=== PATIENT | female | born 1960 | race African-American/Black ===

== ENCOUNTER 2022-02-07 15:11 | Inpatient (IN) | payer MEDICARE, BC ==
[~2022-02-07] VITALS: Ht 167.6 cm; Wt 84.9 kg
[2022-02-07] MEDS ORDERED: SODIUM CHLORIDE 0.9% 250 ML IV ONE (16:15)
[2022-02-07 16:40] LABS: BASOPHILS % 0.3 % (0.0-2.0); LYMPHOCYTES % 8.8 % (20.0-50.0); MEAN CORPUSCULAR HEMOGLOBIN 31.9 pg (28.0-32.0); MEAN CORPUSCULAR VOLUME 102.1 fL (81.0-99.0); MEAN PLATELET VOLUME 8.6 fl (7.4-10.4); MONOCYTES % 4.6 % (2.0-8.0); NEUTROPHILS % 86.3 % (40.0-76.0); PLATELET 455 x1000/uL (130-400); RED BLOOD CELL COUNT 2.06 mill/uL (4.2-5.4); RED CELL DISTRIBUTION WIDTH 21.6 % (11.6-14.6)
[2022-02-07 16:49] LABS: HEMOGLOBIN. 6.6 g/dL (12.0-16.0)
[2022-02-07 16:50] LABS: CHLORIDE 90 mEq/L (98-107)
[2022-02-07 19:22] LABS: INR > 10.0; PROTHROMBIN TIME > 100.0 sec (9.6-11.0)
[2022-02-07] MEDS ORDERED: PHYTONADIONE 10MG/ML AMP SUBCUT NR (19:45)
[2022-02-07] MEDS ORDERED: PIPERACILLIN/TAZ 3.375G PREMIX 50 ML IV NR (21:00)
[2022-02-07] MEDS ORDERED: VANCOMYCIN 1GM PMX (XELLIA) 200 ML IV NR (21:00)
[2022-02-08] VITALS (9 sets, daily range): BP systolic 95–115; BP diastolic 38–72
[2022-02-08 00:20] LABS: BG BASE EXCESS -9.9 mmol/L (-2.0-2.0); BG CARBOXYHEMOGLOBIN 0.6 % (0.5-1.5); BG FRACTION INSPIRED OXYGEN 40; BG METHEMOGLOBIN 0.2 % (0.0-1.5); BG OXYHEMOGLOBIN 95.2 % (94.0-97.0); BG PH 7.332 (7.350-7.450); BG PO2 96.4 mmHg (75.0-100.0); BG SAMPLE SITE LEFT BRACHIAL; BG TOTAL HEMOGLOBIN 7.9 g/dL (12.0-18.0); BG TOTAL RESPIRATORY RATE 28 b/min; BG VENT MODE MASK - BIPAP
[2022-02-08] MEDS ORDERED: ACETAMINOPHEN 325MG TABLET PO PRN ×2 (06:45)
[2022-02-08] MEDS ORDERED: LORAZEPAM 0.5MG TABLET PO PRN (06:45)
[2022-02-08] MEDS ORDERED: DOCUSATE SODIUM 100MG CAPSULE PO PRN (06:45)
[2022-02-08] MEDS ORDERED: CLONIDINE 0.1MG TABLET PO PRN (06:45)
[2022-02-08] MEDS ORDERED: IPRATROPIUM/ALBUTEROL 0.5-3(2.5)MG/3ML NEB HHN PRN (06:45)
[2022-02-08] MEDS ORDERED: HYDROCODONE/ACETAMINOPHEN 5/325MG TABLET PO PRN (06:45)
[2022-02-08] MEDS ORDERED: NALOXONE HCL 0.4MG/ML VIAL IV PRN (07:00)
[2022-02-08] MEDS ORDERED: FUROSEMIDE 40MG/4ML VIAL IVP SCH (07:45)
[2022-02-08 10:32] LABS: BASOPHILS % 0.1 % (0.0-2.0); HEMATOCRIT. 23.1 % (36.0-48.0); HEMOGLOBIN. 7.4 g/dL (12.0-16.0); LYMPHOCYTES % 11.3 % (20.0-50.0); MEAN CORPUSCULAR HEMOGLOBIN 30.7 pg (28.0-32.0); MEAN CORPUSCULAR VOLUME 95.4 fL (81.0-99.0); MEAN PLATELET VOLUME 8.4 fl (7.4-10.4); MONOCYTES % 7.7 % (2.0-8.0); NEUTROPHILS % 80.9 % (40.0-76.0); PLATELET 308 x1000/uL (130-400); RED BLOOD CELL COUNT 2.42 mill/uL (4.2-5.4); RED CELL DISTRIBUTION WIDTH 19.3 % (11.6-14.6)
[2022-02-08 10:47] LABS: CHLORIDE 94 mEq/L (98-107)
[2022-02-08 10:48] LABS: PROTHROMBIN TIME 97.1 sec (9.6-11.0)
[2022-02-08 10:53] LABS: BG BASE EXCESS -11.2 mmol/L (-2.0-2.0); BG CARBOXYHEMOGLOBIN 0.3 % (0.5-1.5); BG DEOXYHEMOGLOBIN 2.8 % (0.0-5.0); BG FRACTION INSPIRED OXYGEN 60; BG HCO3 ACT 13.5 mmol/L (22.0-26.0); BG METHEMOGLOBIN 0.5 % (0.0-1.5); BG OXYGEN SATURATION 97.2 % (92.0-98.5); BG OXYHEMOGLOBIN 96.4 % (94.0-97.0); BG PCO2 26.3 mmHg (35.0-45.0); BG PH 7.329 (7.350-7.450); BG PO2 110.1 mmHg (75.0-100.0); BG SAMPLE SITE RIGHT RADIAL; BG TOTAL HEMOGLOBIN 8.1 g/dL (12.0-18.0); BG VENT MODE MASK - SIMPLE
[2022-02-08 11:03] LABS: AMYLASE 112 IU/L (25-115); TOTAL IRON BINDING CAPACITY 276 ug/dL (250-450)
[2022-02-08 11:22] LABS: FOLIC ACID (FOLATE) SERUM 16.2 ng/mL (>5.38)
[2022-02-08 11:37] LABS: PHOSPHORUS 12.3 mg/dL (2.5-4.9)
[2022-02-08 11:38] LABS: HAPTOGLOBIN < 8 mg/dL (30-200)
[2022-02-08] MEDS ORDERED: SODIUM POLYSTYRENE SULFONATE 15 G/60 ML BOT PO NR (12:51)
[2022-02-08] MEDS ORDERED: PHYTONADIONE 10MG/ML AMP SUBCUT SCH (13:00)
[2022-02-08] MEDS: PIPERACILLIN/TAZOBACTAM 3.375 G in DEXTROSE 5% WATER 50 ML IV SCH ×2 (14:33→22:14)
[2022-02-08] MEDS: SEVELAMER CARBONATE 800 MG TABLET PO SCH ×2 (14:39→18:00)
[2022-02-08] MEDS: CITRIC ACID/SODIUM CITRATE SOLN 30ML UDC PO SCH ×3 (14:39→17:00)
[2022-02-08] MEDS: FOLIC ACID/VITAMIN B COMP W-C TABLET PO SCH (14:39)
[2022-02-09] VITALS (17 sets, daily range): BP systolic 101–139; BP diastolic 35–90
[2022-02-09] MEDS: SEVELAMER CARBONATE 800 MG TABLET PO SCH ×3 (08:00→17:31)
[2022-02-09] MEDS: PIPERACILLIN/TAZOBACTAM 3.375 G in DEXTROSE 5% WATER 50 ML IV SCH ×2 (08:08→21:16)
[2022-02-09] MEDS: FOLIC ACID/VITAMIN B COMP W-C TABLET PO SCH (08:08)
[2022-02-09] MEDS: CITRIC ACID/SODIUM CITRATE SOLN 30ML UDC PO SCH ×3 (08:08→16:06)
[2022-02-09] MEDS: METOPROLOL TARTRATE 25MG TABLET PO SCH ×2 (08:55→21:16)
[2022-02-09 12:20] LABS: BASOPHILS % 0.1 % (0.0-2.0); EOSINOPHILS % 0.1 % (0.0-5.0); LYMPHOCYTES % 8.5 % (20.0-50.0); MEAN CORPUSCULAR HEMOGLOBIN 30.6 pg (28.0-32.0); MEAN CORPUSCULAR VOLUME 95.7 fL (81.0-99.0); MEAN PLATELET VOLUME 8.4 fl (7.4-10.4); MONOCYTES % 6.8 % (2.0-8.0); NEUTROPHILS % 84.5 % (40.0-76.0); PLATELET 261 x1000/uL (130-400); RED BLOOD CELL COUNT 2.09 mill/uL (4.2-5.4)
[2022-02-09 12:34] LABS: HEMOGLOBIN. 6.4 g/dL (12.0-16.0)
[2022-02-09 17:50] LABS: INR 3.6; PROTHROMBIN TIME 34.8 sec (9.6-11.0)
[2022-02-09 20:52] LABS: HEMATOCRIT 26.3 % (36.0-48.0); HEMOGLOBIN 8.6 g/dL (12.0-16.0)
[2022-02-09 20:58] LABS: INR 3.2; PROTHROMBIN TIME 31.8 sec (9.6-11.0)
[2022-02-09] MEDS ORDERED: FUROSEMIDE 40MG/4ML VIAL IVP SCH (21:00)
[2022-02-10] VITALS (13 sets, daily range): BP systolic 91–157; BP diastolic 44–112
[2022-02-10 06:33] LABS: EOSINOPHILS % 0.8 % (0.0-5.0); HEMATOCRIT. 26.9 % (36.0-48.0); LYMPHOCYTES % 8.9 % (20.0-50.0); MEAN CORPUSCULAR VOLUME 95.7 fL (81.0-99.0); MEAN PLATELET VOLUME 8.7 fl (7.4-10.4); MONOCYTES % 6.8 % (2.0-8.0); NEUTROPHILS % 83.5 % (40.0-76.0); PLATELET 235 x1000/uL (130-400); RED BLOOD CELL COUNT 2.81 mill/uL (4.2-5.4); RED CELL DISTRIBUTION WIDTH 17.5 % (11.6-14.6)
[2022-02-10] MEDS: PIPERACILLIN/TAZOBACTAM 3.375 G in DEXTROSE 5% WATER 50 ML IV SCH ×2 (09:10→21:28)
[2022-02-10] MEDS: CITRIC ACID/SODIUM CITRATE SOLN 30ML UDC PO SCH ×3 (09:10→17:21)
[2022-02-10] MEDS: FOLIC ACID/VITAMIN B COMP W-C TABLET PO SCH (09:11)
[2022-02-10] MEDS: SEVELAMER CARBONATE 800 MG TABLET PO SCH ×3 (09:11→17:22)
[2022-02-10] MEDS: METOPROLOL TARTRATE 25MG TABLET PO SCH ×2 (09:16→21:00)
[2022-02-10] MEDS: POTASSIUM CHLORIDE 20MEQ TABLET SR PO SCH (10:50)
[2022-02-10] MEDS: BACLOFEN 10MG TABLET PO SCH ×2 (15:38→21:29)
[2022-02-10 22:09] LABS: INR 1.8; PROTHROMBIN TIME 18.8 sec (9.6-11.0)
[2022-02-11] VITALS (10 sets, daily range): BP systolic 89–162; BP diastolic 56–97
[2022-02-11 07:38] LABS: HEMATOCRIT. 29.9 % (36.0-48.0); MEAN CORPUSCULAR HEMOGLOBIN 31.9 pg (28.0-32.0); MEAN CORPUSCULAR VOLUME 95.8 fL (81.0-99.0); PLATELET 243 x1000/uL (130-400); RED BLOOD CELL COUNT 3.12 mill/uL (4.2-5.4); RED CELL DISTRIBUTION WIDTH 17.9 % (11.6-14.6)
[2022-02-11 07:51] LABS: INR 1.6; PROTHROMBIN TIME 16.7 sec (9.6-11.0)
[2022-02-11] MEDS ORDERED: POTASSIUM CHLORIDE INJ 40 MEQ in DEXT 5% WATER 250 ML IV ONE (09:45)
[2022-02-11] MEDS: POTASSIUM CHLORIDE 20MEQ TABLET SR PO SCH (09:58)
[2022-02-11] MEDS: FOLIC ACID/VITAMIN B COMP W-C TABLET PO SCH (09:58)
[2022-02-11] MEDS: PIPERACILLIN/TAZOBACTAM 3.375 G in DEXTROSE 5% WATER 50 ML IV SCH ×2 (09:58→21:44)
[2022-02-11] MEDS: SEVELAMER CARBONATE 800 MG TABLET PO SCH ×3 (09:58→17:52)
[2022-02-11] MEDS: CITRIC ACID/SODIUM CITRATE SOLN 30ML UDC PO SCH ×3 (09:58→16:42)
[2022-02-11] MEDS: ENOXAPARIN 100MG/ML SYR SUBCUT SCH (09:59)
[2022-02-11] MEDS: METOPROLOL TARTRATE 25MG TABLET PO SCH ×2 (10:09→21:50)
[2022-02-11] MEDS: KCL 20MEQ/100ML X 2 FOR TOTAL KCL 40MEQ/200ML IV SCH ×2 (13:10→16:48)
[2022-02-11] MEDS: BACLOFEN 10MG TABLET PO SCH ×2 (13:17→21:44)
[2022-02-11] MEDS ORDERED: WARFARIN SODIUM 2MG TABLET PO SCH (18:00)
[2022-02-11 18:24] LABS: PLATELET ESTIMATE NORMAL
[2022-02-12] VITALS (29 sets, daily range): BP systolic 88–140; BP diastolic 39–75
[2022-02-12] MEDS: BACLOFEN 10MG TABLET PO SCH ×3 (05:27→21:47)
[2022-02-12 07:17] LABS: INR 1.3; PROTHROMBIN TIME 13.8 sec (9.6-11.0)
[2022-02-12] MEDS: CITRIC ACID/SODIUM CITRATE SOLN 30ML UDC PO SCH ×3 (09:00→17:00)
[2022-02-12] MEDS: METOPROLOL TARTRATE 25MG TABLET PO SCH ×2 (09:00→21:00)
[2022-02-12] MEDS: POTASSIUM CHLORIDE 20MEQ TABLET SR PO SCH (09:19)
[2022-02-12] MEDS: SEVELAMER CARBONATE 800 MG TABLET PO SCH ×3 (09:19→18:00)
[2022-02-12] MEDS: FOLIC ACID/VITAMIN B COMP W-C TABLET PO SCH (09:20)
[2022-02-12] MEDS: ENOXAPARIN 100MG/ML SYR SUBCUT SCH (09:21)
[2022-02-12] MEDS: PIPERACILLIN/TAZOBACTAM 3.375 G in DEXTROSE 5% WATER 50 ML IV SCH ×2 (09:23→20:14)
[2022-02-12 09:55] LABS: BASOPHILS % 0.2 % (0.0-2.0); EOSINOPHILS % 0.8 % (0.0-5.0); HEMATOCRIT. 32.8 % (36.0-48.0); HEMOGLOBIN. 10.6 g/dL (12.0-16.0); LYMPHOCYTES % 8.6 % (20.0-50.0); MEAN CORPUSCULAR HEMOGLOBIN 31.4 pg (28.0-32.0); MEAN CORPUSCULAR VOLUME 97.1 fL (81.0-99.0); MEAN PLATELET VOLUME 9.7 fl (7.4-10.4); MONOCYTES % 5.6 % (2.0-8.0); NEUTROPHILS % 84.8 % (40.0-76.0); PLATELET 276 x1000/uL (130-400); RED BLOOD CELL COUNT 3.38 mill/uL (4.2-5.4); RED CELL DISTRIBUTION WIDTH 19.5 % (11.6-14.6)
[2022-02-12] MEDS ORDERED: OMEPRAZOLE 20MG CAPSULE EXTENDED RELEASE PO SCH (13:15)
[2022-02-12 13:16] LABS: BG BASE EXCESS -2.6 mmol/L (-2.0-2.0); BG CARBOXYHEMOGLOBIN 0.4 % (0.5-1.5); BG DEOXYHEMOGLOBIN 3.3 % (0.0-5.0); BG FRACTION INSPIRED OXYGEN 34; BG HCO3 ACT 20.9 mmol/L (22.0-26.0); BG METHEMOGLOBIN 0.4 % (0.0-1.5); BG OXYGEN SATURATION 96.7 % (92.0-98.5); BG OXYHEMOGLOBIN 95.9 % (94.0-97.0); BG PCO2 31.6 mmHg (35.0-45.0); BG PH 7.439 (7.350-7.450); BG PO2 101.4 mmHg (75.0-100.0); BG SAMPLE SITE LEFT RADIAL; BG TOTAL HEMOGLOBIN 10.2 g/dL (12.0-18.0); BG VENT MODE NASAL CANNULA
[2022-02-12] MEDS: SUCRALFATE 1 G/10 ML UDC PO SCH ×2 (17:30→21:00)
[2022-02-12] MEDS ORDERED: SODIUM CHLORIDE 0.9% 1000ML BAG (SEPSIS BOLUS) IV ONE (17:30)
[2022-02-12] MEDS: ONDANSETRON HCL 4MG/2ML INJ IV PRN (17:39)
[2022-02-12] MEDS ORDERED: WARFARIN SODIUM 2MG TABLET PO SCH (18:00)
[2022-02-12 18:14] LABS: PHOSPHORUS 11.8 mg/dL (2.5-4.9)
[2022-02-12 20:47] LABS: BG BASE EXCESS -3.8 mmol/L (-2.0-2.0); BG CARBOXYHEMOGLOBIN 0.1 % (0.5-1.5); BG DEOXYHEMOGLOBIN 0.6 % (0.0-5.0); BG HCO3 ACT 19.5 mmol/L (22.0-26.0); BG OXYGEN SATURATION 99.4 % (92.0-98.5); BG OXYHEMOGLOBIN 99.3 % (94.0-97.0); BG PCO2 28.9 mmHg (35.0-45.0); BG PH 7.446 (7.350-7.450); BG PO2 328.7 mmHg (75.0-100.0); BG SAMPLE SITE RIGHT RADIAL; BG TOTAL HEMOGLOBIN 9.7 g/dL (12.0-18.0); BG VENT MODE MASK - NRB
[2022-02-12] MEDS ORDERED: NOREPINEPHRINE 32 MG in DEXT 5% WATER 218 ML IV PRN (23:00)
[2022-02-13] VITALS (81 sets, daily range): BP systolic 56–138; BP diastolic 26–78
[2022-02-13] MEDS: ONDANSETRON HCL 4MG/2ML INJ IV PRN (02:36)
[2022-02-13 04:33] LABS: HEMATOCRIT. 30.3 % (36.0-48.0); HEMOGLOBIN. 9.8 g/dL (12.0-16.0); MEAN CORPUSCULAR HEMOGLOBIN 31.5 pg (28.0-32.0); MEAN CORPUSCULAR VOLUME 97.8 fL (81.0-99.0); MEAN PLATELET VOLUME 9.3 fl (7.4-10.4); PLATELET 254 x1000/uL (130-400); RED CELL DISTRIBUTION WIDTH 20.1 % (11.6-14.6)
[2022-02-13 05:00] LABS: INR 1.2
[2022-02-13] MEDS: SODIUM CHLORIDE 0.45% 1,000 ML IV SCH (05:03)
[2022-02-13] MEDS: PANTOPRAZOLE SODIUM 40 MG/VIAL IV SCH (05:04)
[2022-02-13] MEDS: METOCLOPRAMIDE HCL 10MG/2ML VIAL IV SCH ×4 (05:04→23:05)
[2022-02-13] MEDS: SEVELAMER CARBONATE 800 MG TABLET PO SCH ×3 (06:04→17:00)
[2022-02-13] MEDS: FOLIC ACID/VITAMIN B COMP W-C TABLET PO SCH (08:21)
[2022-02-13] MEDS: CITRIC ACID/SODIUM CITRATE SOLN 30ML UDC PO SCH ×3 (08:21→17:00)
[2022-02-13] MEDS ORDERED: LIDOCAINE HCL/PF 1% 10 MG/ML 5ML VIAL ONE (08:27)
[2022-02-13] MEDS: PIPERACILLIN/TAZOBACTAM 3.375 G in DEXTROSE 5% WATER 50 ML IV SCH ×2 (08:30→20:56)
[2022-02-13 10:45] LABS: HEMATOCRIT. 25.3 % (36.0-48.0); HEMOGLOBIN. 8.3 g/dL (12.0-16.0); MEAN CORPUSCULAR VOLUME 97.8 fL (81.0-99.0); MEAN PLATELET VOLUME 9.2 fl (7.4-10.4); PLATELET 211 x1000/uL (130-400); RED BLOOD CELL COUNT 2.59 mill/uL (4.2-5.4); RED CELL DISTRIBUTION WIDTH 20.3 % (11.6-14.6)
[2022-02-13 10:52] LABS: INR 1.2; PROTHROMBIN TIME 12.9 sec (9.6-11.0)
[2022-02-13 19:40] LABS: HEMATOCRIT 26.9 % (36.0-48.0); HEMOGLOBIN 8.3 g/dL (12.0-16.0)
[2022-02-13 21:37] LABS: NUCLEATED RED BLOOD CELLS 2 /100 WBC; PLATELET ESTIMATE NORMAL
[2022-02-13 23:07] LABS: PLATELET ESTIMATE NORMAL
[2022-02-14] VITALS (67 sets, daily range): BP systolic 97–176; BP diastolic 35–101
[2022-02-14] MEDS: ONDANSETRON HCL 4MG/2ML INJ IV PRN ×3 (00:11→20:42)
[2022-02-14 00:44] LABS: HEMATOCRIT 25.9 % (36.0-48.0); HEMOGLOBIN 8.3 g/dL (12.0-16.0)
[2022-02-14] MEDS: SODIUM CHLORIDE 0.45% 1,000 ML IV SCH ×2 (01:11→20:24)
[2022-02-14] MEDS: METOCLOPRAMIDE HCL 10MG/2ML VIAL IV SCH ×4 (05:09→23:04)
[2022-02-14 05:24] LABS: INR 1.1; PHOSPHORUS 2.3 mg/dL (2.5-4.9); PROTHROMBIN TIME 12.2 sec (9.6-11.0)
[2022-02-14] MEDS: SEVELAMER CARBONATE 800 MG TABLET PO SCH ×3 (06:10→17:00)
[2022-02-14] MEDS: PANTOPRAZOLE SODIUM 40 MG/VIAL IV SCH (08:02)
[2022-02-14] MEDS: FOLIC ACID/VITAMIN B COMP W-C TABLET PO SCH (08:03)
[2022-02-14] MEDS: CITRIC ACID/SODIUM CITRATE SOLN 30ML UDC PO SCH ×3 (08:03→17:00)
[2022-02-14] MEDS: PIPERACILLIN/TAZOBACTAM 3.375 G in DEXTROSE 5% WATER 50 ML IV SCH ×2 (08:03→20:24)
[2022-02-14 10:47] LABS: HEMATOCRIT. 23.9 % (36.0-48.0); HEMOGLOBIN. 7.9 g/dL (12.0-16.0); MEAN CORPUSCULAR HEMOGLOBIN 31.9 pg (28.0-32.0); MEAN PLATELET VOLUME 9.2 fl (7.4-10.4); PLATELET 231 x1000/uL (130-400); RED BLOOD CELL COUNT 2.46 mill/uL (4.2-5.4); RED CELL DISTRIBUTION WIDTH 21.7 % (11.6-14.6)
[2022-02-14 12:20] LABS: PLATELET ESTIMATE NORMAL
[2022-02-14] MEDS ORDERED: KCL 20MEQ/100ML PREMIX 100 ML IV NR (15:00)
[2022-02-14 19:29] LABS: HEMATOCRIT 27.6 % (36.0-48.0)
[2022-02-14 19:42] LABS: INR 1.2; PROTHROMBIN TIME 12.7 sec (9.6-11.0)
[2022-02-14] MEDS: EPOETIN ALFA-EPBX 4,000 UNIT/ML VIAL SUBCUT SCH (21:14)
[2022-02-15] VITALS (65 sets, daily range): BP systolic 97–149; BP diastolic 45–73
[2022-02-15 04:56] LABS: HEMATOCRIT. 29.6 % (36.0-48.0); HEMOGLOBIN. 9.6 g/dL (12.0-16.0); MEAN CORPUSCULAR HEMOGLOBIN 30.7 pg (28.0-32.0); MEAN CORPUSCULAR VOLUME 94.6 fL (81.0-99.0); MEAN PLATELET VOLUME 9.1 fl (7.4-10.4); PLATELET 221 x1000/uL (130-400); RED BLOOD CELL COUNT 3.13 mill/uL (4.2-5.4); RED CELL DISTRIBUTION WIDTH 19.3 % (11.6-14.6)
[2022-02-15] MEDS: METOCLOPRAMIDE HCL 10MG/2ML VIAL IV SCH ×4 (05:08→23:04)
[2022-02-15 05:09] LABS: CHLORIDE 96 mEq/L (98-107)
[2022-02-15 05:20] LABS: INR 1.2; PROTHROMBIN TIME 12.3 sec (9.6-11.0)
[2022-02-15] MEDS: SEVELAMER CARBONATE 800 MG TABLET PO SCH ×3 (06:51→17:08)
[2022-02-15] MEDS: FOLIC ACID/VITAMIN B COMP W-C TABLET PO SCH (08:06)
[2022-02-15] MEDS: CITRIC ACID/SODIUM CITRATE SOLN 30ML UDC PO SCH (08:06)
[2022-02-15] MEDS: PANTOPRAZOLE SODIUM 40 MG/VIAL IV SCH (08:10)
[2022-02-15] MEDS: ONDANSETRON HCL 4MG/2ML INJ IV PRN (08:10)
[2022-02-15] MEDS: PIPERACILLIN/TAZOBACTAM 3.375 G in DEXTROSE 5% WATER 50 ML IV SCH ×2 (08:10→20:22)
[2022-02-15] MEDS ORDERED: POTASSIUM CHLORIDE INJ 40 MEQ in DEXT 5% WATER 250 ML IV ONE (09:00)
[2022-02-15 09:49] LABS: PLATELET ESTIMATE NORMAL
[2022-02-15] MEDS: KCL 20MEQ/100ML X 2 FOR TOTAL KCL 40MEQ/200ML IV SCH ×2 (10:26→11:54)
[2022-02-15] MEDS ORDERED: PROPOFOL 200MG/20ML VIAL IV ONE (14:04)
[2022-02-15] MEDS ORDERED: DEXAMETHASONE 4MG/ML 1ML VIAL ONE (14:05)
[2022-02-15] MEDS ORDERED: ONDANSETRON HCL 4MG/2ML INJ ONE (14:05)
[2022-02-15] MEDS ORDERED: SIMETHICONE 40 MG/0.6 ML 15ML ONE (14:41)
[2022-02-16] VITALS (29 sets, daily range): BP systolic 101–156; BP diastolic 49–95
[2022-02-16] MEDS: METOCLOPRAMIDE HCL 10MG/2ML VIAL IV SCH ×3 (05:04→17:34)
[2022-02-16 05:46] LABS: HEMATOCRIT. 27.2 % (36.0-48.0); HEMOGLOBIN. 8.9 g/dL (12.0-16.0); MEAN CORPUSCULAR HEMOGLOBIN 30.7 pg (28.0-32.0); MEAN CORPUSCULAR VOLUME 94.1 fL (81.0-99.0); MEAN PLATELET VOLUME 9.5 fl (7.4-10.4); PLATELET 217 x1000/uL (130-400); RED BLOOD CELL COUNT 2.89 mill/uL (4.2-5.4); RED CELL DISTRIBUTION WIDTH 19.7 % (11.6-14.6)
[2022-02-16] MEDS: SEVELAMER CARBONATE 800 MG TABLET PO SCH ×3 (07:06→17:40)
[2022-02-16 07:44] LABS: PHOSPHORUS 11.1 mg/dL (2.5-4.9)
[2022-02-16] MEDS: PANTOPRAZOLE SODIUM 40 MG/VIAL IV SCH (08:48)
[2022-02-16] MEDS: FOLIC ACID/VITAMIN B COMP W-C TABLET PO SCH (08:48)
[2022-02-16] MEDS: PIPERACILLIN/TAZOBACTAM 3.375 G in DEXTROSE 5% WATER 50 ML IV SCH ×2 (08:49→21:27)
[2022-02-16] MEDS ORDERED: POTASSIUM CHLORIDE 20MEQ TABLET SR PO SCH (09:00)
[2022-02-16 13:10] LABS: PLATELET ESTIMATE NORMAL
[2022-02-16] MEDS: WARFARIN SODIUM 2MG TABLET PO SCH ×2 (17:41→17:42)
[2022-02-16] MEDS: EPOETIN ALFA-EPBX 4,000 UNIT/ML VIAL SUBCUT SCH (21:27)
[2022-02-17] VITALS (11 sets, daily range): BP systolic 95–149; BP diastolic 62–96
[2022-02-17] MEDS: METOCLOPRAMIDE HCL 10MG/2ML VIAL IV SCH ×4 (00:15→17:25)
[2022-02-17 05:36] LABS: INR 1.1; PROTHROMBIN TIME 12.2 sec (9.6-11.0)
[2022-02-17 06:13] LABS: BASOPHILS % 0.2 % (0.0-2.0); EOSINOPHILS % 3.6 % (0.0-5.0); HEMATOCRIT. 27.8 % (36.0-48.0); HEMOGLOBIN. 9.1 g/dL (12.0-16.0); LYMPHOCYTES % 7.4 % (20.0-50.0); MEAN CORPUSCULAR HEMOGLOBIN 31.1 pg (28.0-32.0); MEAN CORPUSCULAR VOLUME 95.1 fL (81.0-99.0); MEAN PLATELET VOLUME 9.7 fl (7.4-10.4); MONOCYTES % 6.9 % (2.0-8.0); NEUTROPHILS % 81.9 % (40.0-76.0); PLATELET 202 x1000/uL (130-400); RED BLOOD CELL COUNT 2.93 mill/uL (4.2-5.4); RED CELL DISTRIBUTION WIDTH 20.3 % (11.6-14.6)
[2022-02-17] MEDS: SEVELAMER CARBONATE 800 MG TABLET PO SCH ×3 (09:05→17:26)
[2022-02-17] MEDS: PANTOPRAZOLE SODIUM 40 MG/VIAL IV SCH (09:05)
[2022-02-17] MEDS: FOLIC ACID/VITAMIN B COMP W-C TABLET PO SCH (09:05)
[2022-02-17] MEDS: PIPERACILLIN/TAZOBACTAM 3.375 G in DEXTROSE 5% WATER 50 ML IV SCH (09:30)
[2022-02-17] MEDS: MEROPENEM 1,000 MG in SODIUM CHLORIDE 0.9% 100 ML IV SCH (17:26)
[2022-02-17] MEDS ORDERED: WARFARIN SODIUM 2.5MG TABLET PO SCH (18:00)
[2022-02-18] VITALS (11 sets, daily range): BP systolic 100–164; BP diastolic 54–77
[2022-02-18] MEDS: METOCLOPRAMIDE HCL 10MG/2ML VIAL IV SCH ×5 (06:00→23:43)
[2022-02-18] MEDS: SEVELAMER CARBONATE 800 MG TABLET PO SCH ×3 (08:00→18:16)
[2022-02-18] MEDS: PANTOPRAZOLE SODIUM 40 MG/VIAL IV SCH (09:00)
[2022-02-18] MEDS: FOLIC ACID/VITAMIN B COMP W-C TABLET PO SCH (09:00)
[2022-02-18 11:48] LABS: INR 1.2; PROTHROMBIN TIME 12.5 sec (9.6-11.0)
[2022-02-18 12:04] LABS: HEMATOCRIT. 27.4 % (36.0-48.0); HEMOGLOBIN. 9.3 g/dL (12.0-16.0); MEAN CORPUSCULAR HEMOGLOBIN 32.4 pg (28.0-32.0); MEAN CORPUSCULAR VOLUME 95.1 fL (81.0-99.0); MEAN PLATELET VOLUME 9.9 fl (7.4-10.4); PLATELET 214 x1000/uL (130-400); RED BLOOD CELL COUNT 2.88 mill/uL (4.2-5.4); RED CELL DISTRIBUTION WIDTH 20.2 % (11.6-14.6)
[2022-02-18] MEDS ORDERED: POTASSIUM CHLORIDE 20MEQ TABLET SR PO NR (15:00)
[2022-02-18] MEDS ORDERED: ASPI-1497 MT ×2 (16:49→16:50)
[2022-02-18] MEDS ORDERED: FERR325T6 MT (16:49)
[2022-02-18] MEDS ORDERED: WARF3TAB58 PO (16:49)
[2022-02-18] MEDS ORDERED: ROSU40TA MT (16:52)
[2022-02-18] MEDS ORDERED: AMI2 MT (16:52)
[2022-02-18] MEDS ORDERED: FEBU40TA MT (16:52)
[2022-02-18] MEDS ORDERED: NIFE90TA60 MT (16:52)
[2022-02-18] MEDS ORDERED: FERR210T MT (16:52)
[2022-02-18] MEDS ORDERED: WARF-67 PO (16:55)
[2022-02-18] MEDS ORDERED: WARFARIN SODIUM 2.5MG TABLET PO SCH (18:00)
[2022-02-18] MEDS: MEROPENEM 1,000 MG in SODIUM CHLORIDE 0.9% 100 ML IV SCH (18:10)
[2022-02-18] MEDS: EPOETIN ALFA-EPBX 4,000 UNIT/ML VIAL SUBCUT SCH (21:00)
[2022-02-18 22:24] LABS: NUCLEATED RED BLOOD CELLS 1 /100 WBC; PLATELET ESTIMATE NORMAL
[2022-02-19] VITALS: BP 147/74
[2022-02-19 04:00] VITALS: BP 137/65
[2022-02-19] MEDS: METOCLOPRAMIDE HCL 10MG/2ML VIAL IV SCH ×2 (06:00→11:11)
[2022-02-19 07:02] LABS: BASOPHILS % 0.1 % (0.0-2.0); EOSINOPHILS % 2.4 % (0.0-5.0); HEMATOCRIT. 27.5 % (36.0-48.0); HEMOGLOBIN. 9.2 g/dL (12.0-16.0); LYMPHOCYTES % 8.8 % (20.0-50.0); MEAN CORPUSCULAR HEMOGLOBIN 31.3 pg (28.0-32.0); MEAN CORPUSCULAR VOLUME 93.1 fL (81.0-99.0); MEAN PLATELET VOLUME 9.8 fl (7.4-10.4); MONOCYTES % 6.8 % (2.0-8.0); NEUTROPHILS % 81.9 % (40.0-76.0); PLATELET 205 x1000/uL (130-400); RED BLOOD CELL COUNT 2.95 mill/uL (4.2-5.4); RED CELL DISTRIBUTION WIDTH 19.9 % (11.6-14.6)
[2022-02-19 07:13] LABS: INR 1.3; PROTHROMBIN TIME 13.5 sec (9.6-11.0)
[2022-02-19 08:00] VITALS: BP 131/61
[2022-02-19] MEDS: PANTOPRAZOLE SODIUM 40 MG/VIAL IV SCH (09:00)
[2022-02-19] MEDS: FOLIC ACID/VITAMIN B COMP W-C TABLET PO SCH (09:06)
[2022-02-19] MEDS: SEVELAMER CARBONATE 800 MG TABLET PO SCH ×2 (09:06→13:00)
[2022-02-19 10:00] VITALS: BP 123/42
[2022-02-19] MEDS ORDERED: POTASSIUM CHLORIDE 20MEQ TABLET SR PO SCH (10:15)
[2022-02-19 12:00] VITALS: BP 119/58
[2022-02-19 12:33] VITALS: BP 119/58
[2022-02-19] MEDS ORDERED: WARFARIN SODIUM 2.5MG TABLET PO SCH (18:00)
== END 2022-02-19 15:01 | disposition home health service (06) | DRG 871 ==
LOC: ER 15:11 → EDBEDREQ 17:05 → EDBEDREQTM 17:05 → MICUSO 19:04 → EDBEDREQTM 19:07 → EDBEDREQ 19:07 → 5EST 02-08 06:53 → MICUSO 02-12 18:55 → 5EST 02-16 14:24
PROVIDERS: ADMIT Internal Medicine; ATTEND Internal Medicine
PROC: 5A09357 Assistance with Respiratory Ventilation, Less than 24 Consecutive Hours, Continuous Positive Airway Pressure (ICD-10-PCS; 2022-02-07)
PROC: 30233N1 Transfusion of Nonautologous Red Blood Cells into Peripheral Vein, Percutaneous Approach (ICD-10-PCS; 2022-02-07)
PROC: 5A1D70Z Performance of Urinary Filtration, Intermittent, Less than 6 Hours Per Day (ICD-10-PCS; 2022-02-08)
PROC: 5A1D70Z Performance of Urinary Filtration, Intermittent, Less than 6 Hours Per Day (ICD-10-PCS; 2022-02-09)
PROC: 5A1D70Z Performance of Urinary Filtration, Intermittent, Less than 6 Hours Per Day (ICD-10-PCS; 2022-02-10)
PROC: 5A1D70Z Performance of Urinary Filtration, Intermittent, Less than 6 Hours Per Day (ICD-10-PCS; 2022-02-11)
PROC: 5A1D70Z Performance of Urinary Filtration, Intermittent, Less than 6 Hours Per Day (ICD-10-PCS; 2022-02-12)
PROC: 02HV33Z Insertion of Infusion Device into Superior Vena Cava, Percutaneous Approach (ICD-10-PCS; principal; 2022-02-13)
PROC: B548ZZA Ultrasonography of Superior Vena Cava, Guidance (ICD-10-PCS; 2022-02-13)
PROC: 5A1D70Z Performance of Urinary Filtration, Intermittent, Less than 6 Hours Per Day (ICD-10-PCS; 2022-02-13)
PROC: 30233N1 Transfusion of Nonautologous Red Blood Cells into Peripheral Vein, Percutaneous Approach (ICD-10-PCS; 2022-02-14)
PROC: 5A1D70Z Performance of Urinary Filtration, Intermittent, Less than 6 Hours Per Day (ICD-10-PCS; 2022-02-14)
PROC: 0DB68ZX Excision of Stomach, Via Natural or Artificial Opening Endoscopic, Diagnostic (ICD-10-PCS; 2022-02-15)
PROC: 5A1D70Z Performance of Urinary Filtration, Intermittent, Less than 6 Hours Per Day (ICD-10-PCS; 2022-02-15)
PROC: 30233N1 Transfusion of Nonautologous Red Blood Cells into Peripheral Vein, Percutaneous Approach (ICD-10-PCS; 2022-02-19)
DX: A41.9 Sepsis, unspecified organism (principal); I50.33 Acute on chronic diastolic (congestive) heart failure; J96.01 Acute respiratory failure with hypoxia; J18.9 Pneumonia, unspecified organism; N18.6 End stage renal disease; K29.71 Gastritis, unspecified, with bleeding; K29.81 Duodenitis with bleeding; I63.9 Cerebral infarction, unspecified; S02.831A Fracture of medial orbital wall, right side, initial encounter for closed fracture; E44.1 Mild protein-calorie malnutrition; E87.2 Acidosis; J81.1 Chronic pulmonary edema; I48.92 Unspecified atrial flutter; G93.40 Encephalopathy, unspecified; R18.8 Other ascites; D68.59 Other primary thrombophilia; I13.2 Hypertensive heart and chronic kidney disease with heart failure and with stage 5 chronic kidney disease, or end stage renal disease; Z20.822 Contact with and (suspected) exposure to COVID-19; D53.9 Nutritional anemia, unspecified; E83.39 Other disorders of phosphorus metabolism; R77.8 Other specified abnormalities of plasma proteins; I95.9 Hypotension, unspecified; E83.41 Hypermagnesemia; E87.5 Hyperkalemia; D50.0 Iron deficiency anemia secondary to blood loss (chronic); E78.5 Hyperlipidemia, unspecified; I27.20 Pulmonary hypertension, unspecified; I48.91 Unspecified atrial fibrillation; E80.6 Other disorders of bilirubin metabolism; E11.22 Type 2 diabetes mellitus with diabetic chronic kidney disease; K76.9 Liver disease, unspecified; I08.1 Rheumatic disorders of both mitral and tricuspid valves; M79.604 Pain in right leg; D63.1 Anemia in chronic kidney disease; I25.10 Atherosclerotic heart disease of native coronary artery without angina pectoris; Z68.30 Body mass index [BMI] 30.0-30.9, adult; Z95.1 Presence of aortocoronary bypass graft; Z99.2 Dependence on renal dialysis; Z91.15 Patient's noncompliance with renal dialysis; Z87.311 Personal history of (healed) other pathological fracture; Z79.01 Long term (current) use of anticoagulants; Z95.3 Presence of xenogenic heart valve; R19.7 Diarrhea, unspecified
CPT/HCPCS: 36415; 36573; 36600; 70551; 71045; 74018; 76700; 76770; 80048; 80053; 80076; 82140; 82150; 82248; 82270; 82375; 82607; 82728; 82746; 82805; 82962; 83010; 83540; 83550; 83605; 83615; 83735; 83880; 84100; 84145; 84484; 85014; 85018; 85025; 85044; 85049; 85384; 86850; 86900; 86920; 87015; 87045; 87426; 87427; 87449; 88305; 88312; 88313; 89055; 93005; 93306; 93880; 94660; 97112; 97116; 97162; 97164; 97166; 97535; 99291; C1725; C9113; J0885; J1100; J1650; J2185; J2405; J2543; J2704; J2765; J3370; J3430; J3480; J3490; J7030; J7050; J7060; P9016

== ENCOUNTER 2022-03-31 19:25 | Inpatient (IN) | payer MEDICARE, BC ==
[~2022-03-31] VITALS: Ht 157.5 cm; Wt 75.7 kg
[~2022-03-31 19:25] MED LIST: MIDO5TAB4 MT; WARF1TAB85 PO
[2022-03-31 19:40] VITALS: BP 88/44
[2022-03-31 20:00] VITALS: BP 88/44
[2022-03-31] MEDS ORDERED: DOCUSATE SODIUM 100MG CAPSULE PO PRN (21:30)
[2022-03-31] MEDS ORDERED: ACETAMINOPHEN 325MG TABLET PO PRN ×3 (21:30→22:45)
[2022-03-31] MEDS ORDERED: IPRATROPIUM/ALBUTEROL 0.5-3(2.5)MG/3ML NEB HHN PRN (21:30)
[2022-03-31] MEDS ORDERED: ONDANSETRON 4MG ODT PO PRN (21:30)
[2022-03-31] MEDS ORDERED: ACETAMINOPHEN 120MG SUPP PR PRN (21:30)
[2022-03-31] MEDS ORDERED: SODIUM CHLORIDE 0.9% 1,000 ML IV ONE (21:30)
[2022-03-31] MEDS: SODIUM CHLORIDE 0.9% 1,000 ML IV SCH (23:08)
[2022-04-01 06:22] LABS: BASOPHILS % 0.6 % (0.0-2.0); EOSINOPHILS % 0.5 % (0.0-5.0); HEMATOCRIT. 23.4 % (36.0-48.0); HEMOGLOBIN. 7.3 g/dL (12.0-16.0); LYMPHOCYTES % 16.4 % (20.0-50.0); MEAN CORPUSCULAR HEMOGLOBIN 30.6 pg (28.0-32.0); MEAN CORPUSCULAR VOLUME 98.1 fL (81.0-99.0); MEAN PLATELET VOLUME 9.9 fl (7.4-10.4); MONOCYTES % 5.9 % (2.0-8.0); NEUTROPHILS % 76.6 % (40.0-76.0); PLATELET 66 x1000/uL (130-400); RED BLOOD CELL COUNT 2.39 mill/uL (4.2-5.4); RED CELL DISTRIBUTION WIDTH 21.8 % (11.6-14.6)
[2022-04-01 06:36] LABS: CHLORIDE 102 mEq/L (98-107)
[2022-04-01 06:43] LABS: INR 3.1; PROTHROMBIN TIME 30.4 sec (9.6-11.0)
[2022-04-01 08:00] VITALS: BP 73/42
[2022-04-01] MEDS: MIDODRINE HCL 5MG TABLET PO SCH ×3 (08:46→18:04)
[2022-04-01] MEDS: CALCIUM ACETATE 667MG CAPSULE PO SCH ×3 (08:46→18:03)
[2022-04-01] MEDS: SODIUM CHLORIDE 0.9% 1,000 ML IV SCH (14:19)
[2022-04-01 20:00] VITALS: BP 100/46
[2022-04-01] MEDS ORDERED: EPOETIN ALFA 4000UNITS/ML VIAL SUBCUT SCH (21:00)
[2022-04-01] MEDS: EPOETIN ALFA-EPBX 4,000 UNIT/ML VIAL SUBCUT SCH (21:22)
[2022-04-02 05:54] LABS: HEMOGLOBIN. 7.7 g/dL (12.0-16.0); MEAN CORPUSCULAR HEMOGLOBIN 30.9 pg (28.0-32.0); MEAN CORPUSCULAR VOLUME 100.4 fL (81.0-99.0); MEAN PLATELET VOLUME 10.6 fl (7.4-10.4); PLATELET 88 x1000/uL (130-400); RED BLOOD CELL COUNT 2.49 mill/uL (4.2-5.4); RED CELL DISTRIBUTION WIDTH 21.8 % (11.6-14.6)
[2022-04-02 06:16] LABS: INR 2.4; PROTHROMBIN TIME 24.1 sec (9.6-11.0)
[2022-04-02 07:57] VITALS: BP 101/47
[2022-04-02 08:02] LABS: NUCLEATED RED BLOOD CELLS 3 /100 WBC; PLATELET ESTIMATE DECREASED
[2022-04-02] MEDS: CALCIUM ACETATE 667MG CAPSULE PO SCH ×3 (10:06→17:18)
[2022-04-02] MEDS: MIDODRINE HCL 5MG TABLET PO SCH ×3 (10:06→17:19)
[2022-04-02] MEDS: SODIUM CHLORIDE 0.9% 1,000 ML IV SCH (10:08)
[2022-04-02] MEDS: ACETAMINOPHEN 325MG TABLET PO PRN ×3 (11:26→20:17)
[2022-04-02] MEDS: ASPIRIN 81MG EC TABLET PO SCH ×2 (11:27→11:30)
[2022-04-02] MEDS ORDERED: WARFARIN SODIUM 2MG TABLET PO NR (18:00)
[2022-04-03 04:00] VITALS: BP 110/48
[2022-04-03 06:55] LABS: HEMATOCRIT. 23.6 % (36.0-48.0); HEMOGLOBIN. 7.6 g/dL (12.0-16.0); MEAN CORPUSCULAR HEMOGLOBIN 31.4 pg (28.0-32.0); MEAN CORPUSCULAR VOLUME 98.3 fL (81.0-99.0); MEAN PLATELET VOLUME 11.1 fl (7.4-10.4); PLATELET 94 x1000/uL (130-400); RED BLOOD CELL COUNT 2.41 mill/uL (4.2-5.4); RED CELL DISTRIBUTION WIDTH 22.2 % (11.6-14.6)
[2022-04-03 06:57] LABS: INR 2.6; PROTHROMBIN TIME 25.6 sec (9.6-11.0)
[2022-04-03 07:21] LABS: CHLORIDE 101 mEq/L (98-107)
[2022-04-03 07:35] LABS: TOTAL IRON BINDING CAPACITY 269 ug/dL (250-450)
[2022-04-03 08:00] VITALS: BP 87/41
[2022-04-03] MEDS: CALCIUM ACETATE 667MG CAPSULE PO SCH ×4 (08:50→18:04)
[2022-04-03] MEDS: ASPIRIN 81MG EC TABLET PO SCH ×2 (08:50→09:02)
[2022-04-03 08:51] LABS: NUCLEATED RED BLOOD CELLS 3 /100 WBC
[2022-04-03] MEDS: ACETAMINOPHEN 325MG TABLET PO PRN ×2 (08:51→13:30)
[2022-04-03] MEDS: MIDODRINE HCL 5MG TABLET PO SCH ×3 (08:52→17:55)
[2022-04-03 08:53] LABS: PLATELET ESTIMATE DECREASED
[2022-04-03] MEDS ORDERED: WARFARIN SODIUM 1MG TABLET PO NR (18:00)
[2022-04-03 20:00] VITALS: BP 94/48
[2022-04-03] MEDS: EPOETIN ALFA-EPBX 4,000 UNIT/ML VIAL SUBCUT SCH (21:14)
[2022-04-04 06:50] LABS: INR 2.3; PROTHROMBIN TIME 22.7 sec (9.6-11.0)
[2022-04-04 07:05] LABS: HEMATOCRIT. 22.1 % (36.0-48.0); HEMOGLOBIN. 7.2 g/dL (12.0-16.0); MEAN CORPUSCULAR HEMOGLOBIN 31.5 pg (28.0-32.0); MEAN CORPUSCULAR VOLUME 96.6 fL (81.0-99.0); MEAN PLATELET VOLUME 10.8 fl (7.4-10.4); PLATELET 88 x1000/uL (130-400); RED BLOOD CELL COUNT 2.29 mill/uL (4.2-5.4); RED CELL DISTRIBUTION WIDTH 21.9 % (11.6-14.6)
[2022-04-04 08:00] VITALS: BP 90/55
[2022-04-04] MEDS ORDERED: POTASSIUM CHLORIDE 20MEQ TABLET SR PO NR (08:45)
[2022-04-04] MEDS: ACETAMINOPHEN 325MG TABLET PO PRN ×3 (09:07→18:09)
[2022-04-04] MEDS: MIDODRINE HCL 5MG TABLET PO SCH ×3 (09:07→18:08)
[2022-04-04 09:37] LABS: PHOSPHORUS 6.1 mg/dL (2.5-4.9)
[2022-04-04 10:04] LABS: NUCLEATED RED BLOOD CELLS 7 /100 WBC; PLATELET ESTIMATE DECREASED
[2022-04-04] MEDS: CALCIUM ACETATE 667MG CAPSULE PO SCH ×2 (13:24→18:08)
[2022-04-04] MEDS: LACTULOSE 20G/30ML UDC PO SCH (13:24)
[2022-04-04] MEDS ORDERED: WARFARIN SODIUM 2MG TABLET PO NR (18:00)
[2022-04-04 20:00] VITALS: BP 112/55
[2022-04-05 05:40] LABS: INR 2.5; PROTHROMBIN TIME 24.6 sec (9.6-11.0)
[2022-04-05] MEDS: LACTULOSE 20G/30ML UDC PO SCH ×3 (06:00→21:13)
[2022-04-05 06:03] LABS: BASOPHILS % 0.8 % (0.0-2.0); EOSINOPHILS % 0.2 % (0.0-5.0); HEMATOCRIT. 24.1 % (36.0-48.0); HEMOGLOBIN. 7.6 g/dL (12.0-16.0); LYMPHOCYTES % 16.6 % (20.0-50.0); MEAN CORPUSCULAR HEMOGLOBIN 31.2 pg (28.0-32.0); MEAN CORPUSCULAR VOLUME 99.2 fL (81.0-99.0); MEAN PLATELET VOLUME 11.8 fl (7.4-10.4); MONOCYTES % 5.4 % (2.0-8.0); PLATELET 105 x1000/uL (130-400); RED BLOOD CELL COUNT 2.43 mill/uL (4.2-5.4); RED CELL DISTRIBUTION WIDTH 22.9 % (11.6-14.6)
[2022-04-05 07:53] VITALS: BP 78/49
[2022-04-05] MEDS: CALCIUM ACETATE 667MG CAPSULE PO SCH ×4 (08:44→17:37)
[2022-04-05] MEDS: MIDODRINE HCL 5MG TABLET PO SCH ×3 (08:45→17:37)
[2022-04-05] MEDS: ASPIRIN 81MG EC TABLET PO SCH (08:51)
[2022-04-05] MEDS: ACETAMINOPHEN 325MG TABLET PO PRN (09:01)
[2022-04-05] MEDS ORDERED: WARFARIN SODIUM 1MG TABLET PO NR (18:00)
[2022-04-05 19:59] VITALS: BP 104/61
[2022-04-05] MEDS ORDERED: EPOETIN ALFA-EPBX 4,000 UNIT/ML VIAL SUBCUT SCH (21:00)
[2022-04-06] MEDS: LACTULOSE 20G/30ML UDC PO SCH ×3 (06:00→22:00)
[2022-04-06 06:02] LABS: INR 2.6; PROTHROMBIN TIME 25.9 sec (9.6-11.0)
[2022-04-06 06:41] LABS: CHLORIDE 100 mEq/L (98-107)
[2022-04-06 08:00] VITALS: BP 93/51
[2022-04-06] MEDS: ACETAMINOPHEN 325MG TABLET PO PRN (08:49)
[2022-04-06] MEDS: CALCIUM ACETATE 667MG CAPSULE PO SCH ×3 (08:49→18:30)
[2022-04-06] MEDS: MIDODRINE HCL 5MG TABLET PO SCH ×3 (08:50→18:31)
[2022-04-06] MEDS ORDERED: POTASSIUM CHLORIDE 20MEQ TABLET SR PO SCH (09:30)
[2022-04-06] MEDS: LIDOCAINE 5% PATCH TOP SCH (11:53)
[2022-04-06] MEDS ORDERED: WARFARIN SODIUM 1MG TABLET PO NR (18:00)
[2022-04-06 20:00] VITALS: BP 140/79
[2022-04-06] MEDS: EPOETIN ALFA-EPBX 4,000 UNIT/ML VIAL SUBCUT SCH (21:33)
[2022-04-07] MEDS: LACTULOSE 20G/30ML UDC PO SCH ×3 (06:00→20:56)
[2022-04-07 06:07] LABS: INR 2.4; PROTHROMBIN TIME 24.2 sec (9.6-11.0)
[2022-04-07 06:17] LABS: BASOPHILS % 0.6 % (0.0-2.0); EOSINOPHILS % 0.3 % (0.0-5.0); HEMOGLOBIN. 7.3 g/dL (12.0-16.0); LYMPHOCYTES % 15.7 % (20.0-50.0); MEAN CORPUSCULAR HEMOGLOBIN 31.5 pg (28.0-32.0); MEAN CORPUSCULAR VOLUME 99.2 fL (81.0-99.0); MEAN PLATELET VOLUME 10.5 fl (7.4-10.4); NEUTROPHILS % 77.4 % (40.0-76.0); PLATELET 131 x1000/uL (130-400); RED BLOOD CELL COUNT 2.32 mill/uL (4.2-5.4); RED CELL DISTRIBUTION WIDTH 23.1 % (11.6-14.6)
[2022-04-07 08:00] VITALS: BP 85/45
[2022-04-07] MEDS: MIDODRINE HCL 5MG TABLET PO SCH ×3 (08:18→18:49)
[2022-04-07] MEDS: LIDOCAINE 5% PATCH TOP SCH (08:19)
[2022-04-07] MEDS: CALCIUM ACETATE 667MG CAPSULE PO SCH ×3 (08:19→18:47)
[2022-04-07] MEDS ORDERED: WARFARIN SODIUM 1MG TABLET PO NR (18:00)
[2022-04-07 20:00] VITALS: BP 103/61
[2022-04-08] MEDS: LACTULOSE 20G/30ML UDC PO SCH ×4 (05:49→21:31)
[2022-04-08 06:00] VITALS: BP 103/61
[2022-04-08 07:22] LABS: BASOPHILS % 0.4 % (0.0-2.0); EOSINOPHILS % 0.2 % (0.0-5.0); HEMATOCRIT. 23.8 % (36.0-48.0); HEMOGLOBIN. 7.7 g/dL (12.0-16.0); INR 2.7; MEAN CORPUSCULAR HEMOGLOBIN 32.2 pg (28.0-32.0); MEAN CORPUSCULAR VOLUME 99.7 fL (81.0-99.0); MEAN PLATELET VOLUME 10.3 fl (7.4-10.4); MONOCYTES % 6.9 % (2.0-8.0); NEUTROPHILS % 73.5 % (40.0-76.0); PLATELET 134 x1000/uL (130-400); PROTHROMBIN TIME 26.6 sec (9.6-11.0); RED BLOOD CELL COUNT 2.38 mill/uL (4.2-5.4); RED CELL DISTRIBUTION WIDTH 23.9 % (11.6-14.6)
[2022-04-08 08:00] VITALS: BP 86/50
[2022-04-08] MEDS: MIDODRINE HCL 5MG TABLET PO SCH ×3 (08:54→17:32)
[2022-04-08] MEDS: CALCIUM ACETATE 667MG CAPSULE PO SCH ×3 (08:54→17:32)
[2022-04-08] MEDS: LIDOCAINE 5% PATCH TOP SCH (08:55)
[2022-04-08] MEDS: GABAPENTIN 100MG CAPSULE PO SCH ×2 (14:03→21:20)
[2022-04-08] MEDS ORDERED: WARFARIN SODIUM 1MG TABLET PO NR (18:00)
[2022-04-08 19:47] VITALS: BP 94/48
[2022-04-09] MEDS: LACTULOSE 20G/30ML UDC PO SCH ×3 (06:00→22:00)
[2022-04-09] MEDS: GABAPENTIN 100MG CAPSULE PO SCH ×3 (06:01→21:03)
[2022-04-09 06:20] LABS: BASOPHILS % 0.6 % (0.0-2.0); EOSINOPHILS % 0.6 % (0.0-5.0); HEMATOCRIT. 23.6 % (36.0-48.0); HEMOGLOBIN. 7.6 g/dL (12.0-16.0); LYMPHOCYTES % 18.9 % (20.0-50.0); MEAN CORPUSCULAR HEMOGLOBIN 31.9 pg (28.0-32.0); MEAN CORPUSCULAR VOLUME 99.5 fL (81.0-99.0); MEAN PLATELET VOLUME 9.9 fl (7.4-10.4); MONOCYTES % 5.9 % (2.0-8.0); PLATELET 146 x1000/uL (130-400); RED BLOOD CELL COUNT 2.37 mill/uL (4.2-5.4); RED CELL DISTRIBUTION WIDTH 24.9 % (11.6-14.6)
[2022-04-09 06:31] LABS: INR 3.1; PROTHROMBIN TIME 30.3 sec (9.6-11.0)
[2022-04-09 08:00] VITALS: BP 83/31
[2022-04-09 08:14] LABS: CHLORIDE 98 mEq/L (98-107)
[2022-04-09] MEDS: MIDODRINE HCL 5MG TABLET PO SCH ×3 (08:45→17:05)
[2022-04-09] MEDS: CALCIUM ACETATE 667MG CAPSULE PO SCH ×3 (08:46→17:00)
[2022-04-09] MEDS: LIDOCAINE 5% PATCH TOP SCH (08:51)
[2022-04-09 15:06] LABS: 25-HYDROXY VITAMIN D3 30 ng/mL (.)
[2022-04-09 20:15] VITALS: BP 96/51
[2022-04-09] MEDS: QUETIAPINE FUMARATE 25MG TABLET PO SCH ×2 (21:00→21:03)
[2022-04-09] MEDS: TRAZODONE HCL 50MG TABLET PO SCH ×2 (21:00→21:02)
[2022-04-10] MEDS: GABAPENTIN 100MG CAPSULE PO SCH ×3 (05:54→21:29)
[2022-04-10] MEDS: LACTULOSE 20G/30ML UDC PO SCH ×3 (05:56→21:29)
[2022-04-10 06:40] LABS: INR 2.4; PROTHROMBIN TIME 23.7 sec (9.6-11.0)
[2022-04-10 08:00] VITALS: BP 84/49
[2022-04-10] MEDS: CALCIUM ACETATE 667MG CAPSULE PO SCH ×3 (08:01→17:00)
[2022-04-10] MEDS: LIDOCAINE 5% PATCH TOP SCH (08:01)
[2022-04-10] MEDS: MIDODRINE HCL 5MG TABLET PO SCH ×3 (08:02→16:45)
[2022-04-10] MEDS: QUETIAPINE FUMARATE 25MG TABLET PO SCH ×2 (08:06→21:28)
[2022-04-10] MEDS ORDERED: ERGOCALCIFEROL 50000UNITS CAPSULE PO SCH (09:00)
[2022-04-10] MEDS ORDERED: WARFARIN SODIUM 1MG TABLET PO NR (18:00)
[2022-04-10 20:00] VITALS: BP 84/39
[2022-04-10] MEDS: TRAZODONE HCL 50MG TABLET PO SCH (21:28)
[2022-04-11] MEDS: GABAPENTIN 100MG CAPSULE PO SCH ×3 (06:05→21:41)
[2022-04-11 06:45] LABS: INR 2.1; PROTHROMBIN TIME 21.4 sec (9.6-11.0)
[2022-04-11 08:00] VITALS: BP 81/44
[2022-04-11] MEDS: MIDODRINE HCL 5MG TABLET PO SCH ×3 (08:58→16:55)
[2022-04-11] MEDS: LIDOCAINE 5% PATCH TOP SCH (08:59)
[2022-04-11] MEDS: CALCIUM ACETATE 667MG CAPSULE PO SCH ×3 (09:00→16:55)
[2022-04-11] MEDS: LACTULOSE 20G/30ML UDC PO SCH ×2 (13:31→21:41)
[2022-04-11] MEDS ORDERED: WARFARIN SODIUM 1MG TABLET PO SCH (18:00)
[2022-04-11 20:00] VITALS: BP 145/60
[2022-04-11] MEDS: QUETIAPINE FUMARATE 25MG TABLET PO SCH (21:41)
[2022-04-12] MEDS: LACTULOSE 20G/30ML UDC PO SCH ×4 (05:32→20:49)
[2022-04-12] MEDS: GABAPENTIN 100MG CAPSULE PO SCH ×3 (05:33→20:49)
[2022-04-12 06:56] LABS: BASOPHILS % 0.6 % (0.0-2.0); EOSINOPHILS % 0.8 % (0.0-5.0); HEMOGLOBIN. 7.8 g/dL (12.0-16.0); LYMPHOCYTES % 20.9 % (20.0-50.0); MEAN CORPUSCULAR HEMOGLOBIN 31.4 pg (28.0-32.0); MEAN CORPUSCULAR VOLUME 100.8 fL (81.0-99.0); MEAN PLATELET VOLUME 9.6 fl (7.4-10.4); MONOCYTES % 6.8 % (2.0-8.0); NEUTROPHILS % 70.9 % (40.0-76.0); PLATELET 158 x1000/uL (130-400); RED BLOOD CELL COUNT 2.48 mill/uL (4.2-5.4); RED CELL DISTRIBUTION WIDTH 25.4 % (11.6-14.6)
[2022-04-12 07:05] LABS: PROTHROMBIN TIME 20.4 sec (9.6-11.0)
[2022-04-12 08:00] VITALS: BP 84/39
[2022-04-12] MEDS: CALCIUM ACETATE 667MG CAPSULE PO SCH ×3 (08:09→16:21)
[2022-04-12] MEDS: LIDOCAINE 5% PATCH TOP SCH (08:10)
[2022-04-12] MEDS: MIDODRINE HCL 5MG TABLET PO SCH ×3 (08:10→16:22)
[2022-04-12] MEDS: QUETIAPINE FUMARATE 25MG TABLET PO SCH ×3 (08:16→16:22)
[2022-04-12] MEDS ORDERED: POTASSIUM CHLORIDE 20MEQ TABLET SR PO NR (15:30)
[2022-04-12] MEDS: WARFARIN SODIUM 1MG TABLET PO SCH (18:09)
[2022-04-12 19:51] VITALS: BP 94/56
[2022-04-12] MEDS: TRAZODONE HCL 50MG TABLET PO SCH (20:49)
[2022-04-13] MEDS: LACTULOSE 20G/30ML UDC PO SCH ×4 (05:38→22:00)
[2022-04-13] MEDS: GABAPENTIN 100MG CAPSULE PO SCH ×3 (05:38→21:44)
[2022-04-13 06:03] LABS: BASOPHILS % 0.7 % (0.0-2.0); EOSINOPHILS % 0.2 % (0.0-5.0); HEMATOCRIT. 29.4 % (36.0-48.0); HEMOGLOBIN. 9.1 g/dL (12.0-16.0); LYMPHOCYTES % 18.3 % (20.0-50.0); MEAN CORPUSCULAR HEMOGLOBIN 31.1 pg (28.0-32.0); MEAN CORPUSCULAR VOLUME 100.4 fL (81.0-99.0); MEAN PLATELET VOLUME 8.8 fl (7.4-10.4); MONOCYTES % 7.4 % (2.0-8.0); NEUTROPHILS % 73.4 % (40.0-76.0); PLATELET 207 x1000/uL (130-400); RED BLOOD CELL COUNT 2.93 mill/uL (4.2-5.4)
[2022-04-13 08:00] VITALS: BP 103/39
[2022-04-13] MEDS: QUETIAPINE FUMARATE 25MG TABLET PO SCH ×3 (09:00→17:00)
[2022-04-13] MEDS: MIDODRINE HCL 5MG TABLET PO SCH ×3 (09:19→18:09)
[2022-04-13] MEDS: CALCIUM ACETATE 667MG CAPSULE PO SCH ×3 (09:19→17:00)
[2022-04-13] MEDS: LIDOCAINE 5% PATCH TOP SCH (09:20)
[2022-04-13] MEDS: WARFARIN SODIUM 1MG TABLET PO SCH (18:09)
[2022-04-13 20:00] VITALS: BP 95/46
[2022-04-13] MEDS: TRAZODONE HCL 50MG TABLET PO SCH (21:45)
[2022-04-14] MEDS: GABAPENTIN 100MG CAPSULE PO SCH ×2 (06:25→13:23)
[2022-04-14 08:00] VITALS: BP 112/94
[2022-04-14] MEDS: CALCIUM ACETATE 667MG CAPSULE PO SCH ×2 (09:00→13:00)
[2022-04-14] MEDS: LIDOCAINE 5% PATCH TOP SCH (09:00)
[2022-04-14] MEDS: QUETIAPINE FUMARATE 25MG TABLET PO SCH ×2 (09:00→13:00)
[2022-04-14] MEDS: MIDODRINE HCL 5MG TABLET PO SCH ×2 (09:10→13:18)
[2022-04-14 11:09] LABS: INR 2.1; PROTHROMBIN TIME 21.4 sec (9.6-11.0)
[2022-04-14 14:17] VITALS: BP 115/90
[2022-04-14] MEDS ORDERED: MIDO10TA MT (18:04)
== END 2022-04-14 15:01 | disposition short-term general hospital (02) | DRG 64 ==
LOC: 4WST 19:25 → OBSVTOIN 19:26
PROVIDERS: ADMIT Physical Medicine & Rehabilitation Spinal Cord Injury Medicine; ATTEND Internal Medicine
PROC: 3E1M39Z Irrigation of Peritoneal Cavity using Dialysate, Percutaneous Approach (ICD-10-PCS; principal; 2022-03-31)
PROC: 3E1M39Z Irrigation of Peritoneal Cavity using Dialysate, Percutaneous Approach (ICD-10-PCS; 2022-03-31)
PROC: 3E1M39Z Irrigation of Peritoneal Cavity using Dialysate, Percutaneous Approach (ICD-10-PCS; 2022-03-31)
PROC: 3E1M39Z Irrigation of Peritoneal Cavity using Dialysate, Percutaneous Approach (ICD-10-PCS; 2022-03-31)
PROC: 3E1M39Z Irrigation of Peritoneal Cavity using Dialysate, Percutaneous Approach (ICD-10-PCS; 2022-03-31)
PROC: 3E1M39Z Irrigation of Peritoneal Cavity using Dialysate, Percutaneous Approach (ICD-10-PCS; 2022-04-01)
PROC: 3E1M39Z Irrigation of Peritoneal Cavity using Dialysate, Percutaneous Approach (ICD-10-PCS; 2022-04-02)
PROC: 3E1M39Z Irrigation of Peritoneal Cavity using Dialysate, Percutaneous Approach (ICD-10-PCS; 2022-04-03)
PROC: 3E1M39Z Irrigation of Peritoneal Cavity using Dialysate, Percutaneous Approach (ICD-10-PCS; 2022-04-04)
PROC: 3E1M39Z Irrigation of Peritoneal Cavity using Dialysate, Percutaneous Approach (ICD-10-PCS; 2022-04-05)
PROC: 3E1M39Z Irrigation of Peritoneal Cavity using Dialysate, Percutaneous Approach (ICD-10-PCS; 2022-04-06)
PROC: 3E1M39Z Irrigation of Peritoneal Cavity using Dialysate, Percutaneous Approach (ICD-10-PCS; 2022-04-07)
PROC: 3E1M39Z Irrigation of Peritoneal Cavity using Dialysate, Percutaneous Approach (ICD-10-PCS; 2022-04-08)
PROC: 3E1M39Z Irrigation of Peritoneal Cavity using Dialysate, Percutaneous Approach (ICD-10-PCS; 2022-04-09)
PROC: 3E1M39Z Irrigation of Peritoneal Cavity using Dialysate, Percutaneous Approach (ICD-10-PCS; 2022-04-10)
PROC: 3E1M39Z Irrigation of Peritoneal Cavity using Dialysate, Percutaneous Approach (ICD-10-PCS; 2022-04-11)
DX: I63.542 Cerebral infarction due to unspecified occlusion or stenosis of left cerebellar artery (principal); A41.9 Sepsis, unspecified organism; E43 Unspecified severe protein-calorie malnutrition; L89.153 Pressure ulcer of sacral region, stage 3; I60.9 Nontraumatic subarachnoid hemorrhage, unspecified; N18.6 End stage renal disease; I61.8 Other nontraumatic intracerebral hemorrhage; G93.41 Metabolic encephalopathy; I69.351 Hemiplegia and hemiparesis following cerebral infarction affecting right dominant side; I50.30 Unspecified diastolic (congestive) heart failure; I13.2 Hypertensive heart and chronic kidney disease with heart failure and with stage 5 chronic kidney disease, or end stage renal disease; E87.20 Acidosis, unspecified; I95.1 Orthostatic hypotension; R13.10 Dysphagia, unspecified; I48.91 Unspecified atrial fibrillation; I25.10 Atherosclerotic heart disease of native coronary artery without angina pectoris; R47.01 Aphasia; D63.8 Anemia in other chronic diseases classified elsewhere; D69.6 Thrombocytopenia, unspecified; D53.9 Nutritional anemia, unspecified; R47.1 Dysarthria and anarthria; R53.81 Other malaise; E55.9 Vitamin D deficiency, unspecified; R74.01 Elevation of levels of liver transaminase levels; H53.8 Other visual disturbances; F43.22 Adjustment disorder with anxiety; F32.A Depression, unspecified; G47.00 Insomnia, unspecified; Z20.822 Contact with and (suspected) exposure to COVID-19; R79.1 Abnormal coagulation profile; G89.0 Central pain syndrome; Z79.899 Other long term (current) drug therapy; Z82.49 Family history of ischemic heart disease and other diseases of the circulatory system; Z95.3 Presence of xenogenic heart valve; Z79.01 Long term (current) use of anticoagulants; Z99.2 Dependence on renal dialysis; Z74.01 Bed confinement status; Z68.30 Body mass index [BMI] 30.0-30.9, adult
CPT/HCPCS: 36415; 70551; 76700; 80048; 80053; 80076; 82140; 82248; 82306; 82607; 82728; 82746; 82962; 83540; 83550; 83735; 84100; 84134; 84443; 85025; 86850; 86900; 86920; 87426; 92523; 92610; 93970; 97110; 97112; 97116; 97162; 97166; 97530; 97535; G0378; J0885; J7030; Q0162

== ENCOUNTER 2022-04-14 15:32 | Inpatient (IN) | payer MEDICARE, BC ==
[~2022-04-14] VITALS: Ht 165.1 cm; Wt 83.0 kg
[2022-04-14 15:20] VITALS: BP 87/47
[2022-04-14 15:48] VITALS: BP 87/47
[2022-04-14 16:01] VITALS: BP 98/51
[2022-04-14] MEDS ORDERED: ONDANSETRON HCL 4MG/2ML INJ IV PRN (17:30)
[2022-04-14] MEDS ORDERED: DOCUSATE SODIUM 100MG CAPSULE PO PRN (17:30)
[2022-04-14] MEDS: CALCIUM ACETATE 667MG CAPSULE PO SCH (17:54)
[2022-04-14] MEDS: MIDODRINE HCL 5MG TABLET PO SCH (18:02)
[2022-04-14] MEDS ORDERED: MIDO10TA MT (18:04)
[2022-04-14] MEDS: WARFARIN SODIUM 1MG TABLET PO SCH (18:59)
[2022-04-14 20:00] VITALS: BP 80/48
[2022-04-14] MEDS: TRAZODONE HCL 50MG TABLET PO SCH (21:32)
[2022-04-14] MEDS: GABAPENTIN 100MG CAPSULE PO SCH (21:32)
[2022-04-15] VITALS (7 sets, daily range): BP systolic 68–99; BP diastolic 40–75
[2022-04-15] MEDS ORDERED: MIDODRINE HCL 5MG TABLET PO NR ×2 (01:00→22:34)
[2022-04-15] MEDS: GABAPENTIN 100MG CAPSULE PO SCH ×2 (05:05→13:04)
[2022-04-15] MEDS: CALCIUM ACETATE 667MG CAPSULE PO SCH ×3 (07:50→16:51)
[2022-04-15] MEDS: MIDODRINE HCL 5MG TABLET PO SCH ×3 (08:50→16:03)
[2022-04-15] MEDS ORDERED: MIDODRINE HCL 5MG TABLET PO SCH (17:00)
[2022-04-15] MEDS: WARFARIN SODIUM 1MG TABLET PO SCH (17:52)
[2022-04-15 18:31] LABS: D-DIMER 0.29 mg/L FEU (<0.50); INR 2.9; PROTHROMBIN TIME 28.7 sec (9.6-11.0)
[2022-04-15 18:53] LABS: BASOPHILS % 0.6 % (0.0-2.0); EOSINOPHILS % 0.6 % (0.0-5.0); HEMATOCRIT. 25.7 % (36.0-48.0); HEMOGLOBIN. 8.1 g/dL (12.0-16.0); LYMPHOCYTES % 15.3 % (20.0-50.0); MEAN CORPUSCULAR HEMOGLOBIN 30.8 pg (28.0-32.0); MEAN CORPUSCULAR VOLUME 97.6 fL (81.0-99.0); MEAN PLATELET VOLUME 10.2 fl (7.4-10.4); MONOCYTES % 6.4 % (2.0-8.0); NEUTROPHILS % 77.1 % (40.0-76.0); PLATELET 229 x1000/uL (130-400); RED BLOOD CELL COUNT 2.63 mill/uL (4.2-5.4); RED CELL DISTRIBUTION WIDTH 23.4 % (11.6-14.6)
[2022-04-15] MEDS ORDERED: SODIUM CHLORIDE 0.9% 1000ML BAG (SEPSIS BOLUS) IV ONE ×2 (19:15→23:00)
[2022-04-15] MEDS: TRAZODONE HCL 50MG TABLET PO SCH (21:00)
[2022-04-15] MEDS: ASCORBIC ACID 500 MG TABLET PO SCH (21:17)
[2022-04-15] MEDS: FAMOTIDINE 20MG TABLET PO SCH (21:18)
[2022-04-15] MEDS ORDERED: VANCOMYCIN 1G PREMIX 200 ML IV ONE (22:45)
[2022-04-16] VITALS (7 sets, daily range): BP systolic 76–136; BP diastolic 33–111
[2022-04-16 00:49] LABS: PLATELET ESTIMATE NORMAL
[2022-04-16] MEDS ORDERED: VANCOMYCIN 1.25GM PMX (XELLIA) 250 ML IV NR (01:00)
[2022-04-16] MEDS: PIPERACILLIN/TAZOBACTAM 3.375 G in DEXTROSE 5% WATER 50 ML IV SCH ×2 (05:20→20:37)
[2022-04-16 06:58] LABS: BASOPHILS % 0.3 % (0.0-2.0); EOSINOPHILS % 1.1 % (0.0-5.0); HEMOGLOBIN. 7.5 g/dL (12.0-16.0); LYMPHOCYTES % 14.9 % (20.0-50.0); MEAN CORPUSCULAR HEMOGLOBIN 30.8 pg (28.0-32.0); MEAN CORPUSCULAR VOLUME 99.1 fL (81.0-99.0); MEAN PLATELET VOLUME 9.6 fl (7.4-10.4); MONOCYTES % 8.3 % (2.0-8.0); NEUTROPHILS % 75.4 % (40.0-76.0); PLATELET 219 x1000/uL (130-400); RED BLOOD CELL COUNT 2.42 mill/uL (4.2-5.4); RED CELL DISTRIBUTION WIDTH 22.8 % (11.6-14.6)
[2022-04-16 07:04] LABS: INR 3.8; PROTHROMBIN TIME 36.8 sec (9.6-11.0)
[2022-04-16 07:13] LABS: CHLORIDE 98 mEq/L (98-107)
[2022-04-16 07:27] LABS: PHOSPHORUS 6.7 mg/dL (2.5-4.9)
[2022-04-16] MEDS: MIDODRINE HCL 5MG TABLET PO SCH ×3 (09:00→17:20)
[2022-04-16] MEDS: ZINC SULFATE 220 MG ( 50 ) CAPSULE PO SCH (09:39)
[2022-04-16] MEDS: CALCIUM ACETATE 667MG CAPSULE PO SCH ×3 (09:40→17:50)
[2022-04-16] MEDS: ASCORBIC ACID 500 MG TABLET PO SCH ×2 (09:40→20:38)
[2022-04-16] MEDS ORDERED: POTASSIUM CHLORIDE 20MEQ TABLET SR PO SCH (12:30)
[2022-04-16] MEDS ORDERED: ALBUMIN HUMAN 25GM/100ML (25%) IV NR (18:00)
[2022-04-16] MEDS: TRAZODONE HCL 50MG TABLET PO SCH (20:38)
[2022-04-16] MEDS: FAMOTIDINE 20MG TABLET PO SCH (20:38)
[2022-04-17] VITALS: BP 148/125
[2022-04-17 04:00] VITALS: BP 127/108
[2022-04-17 08:00] VITALS: BP 91/49
[2022-04-17 08:45] LABS: BASOPHILS % 0.3 % (0.0-2.0); EOSINOPHILS % 0.7 % (0.0-5.0); HEMATOCRIT. 22.4 % (36.0-48.0); HEMOGLOBIN. 7.1 g/dL (12.0-16.0); LYMPHOCYTES % 16.5 % (20.0-50.0); MEAN CORPUSCULAR HEMOGLOBIN 30.8 pg (28.0-32.0); MEAN PLATELET VOLUME 9.7 fl (7.4-10.4); MONOCYTES % 7.9 % (2.0-8.0); NEUTROPHILS % 74.6 % (40.0-76.0); PLATELET 225 x1000/uL (130-400); RED BLOOD CELL COUNT 2.29 mill/uL (4.2-5.4); RED CELL DISTRIBUTION WIDTH 22.7 % (11.6-14.6)
[2022-04-17 08:54] LABS: PROTHROMBIN TIME 72.3 sec (9.6-11.0)
[2022-04-17 09:48] LABS: INR 7.9
[2022-04-17] MEDS: ZINC SULFATE 220 MG ( 50 ) CAPSULE PO SCH (10:31)
[2022-04-17] MEDS: ERGOCALCIFEROL 50000UNITS CAPSULE PO SCH (10:31)
[2022-04-17] MEDS: PIPERACILLIN/TAZOBACTAM 3.375 G in DEXTROSE 5% WATER 50 ML IV SCH ×2 (10:31→21:52)
[2022-04-17] MEDS: CALCIUM ACETATE 667MG CAPSULE PO SCH ×3 (10:31→18:18)
[2022-04-17] MEDS: MIDODRINE HCL 5MG TABLET PO SCH ×3 (10:31→18:18)
[2022-04-17] MEDS: ASCORBIC ACID 500 MG TABLET PO SCH ×3 (10:31→21:52)
[2022-04-17] MEDS ORDERED: POTASSIUM CHLORIDE 20MEQ TABLET SR PO SCH (11:30)
[2022-04-17 12:00] VITALS: BP 104/77
[2022-04-17 16:00] VITALS: BP 100/44
[2022-04-17 20:00] VITALS: BP 101/44
[2022-04-17] MEDS: TRAZODONE HCL 50MG TABLET PO SCH ×2 (21:00→21:52)
[2022-04-17] MEDS: FAMOTIDINE 20MG TABLET PO SCH ×2 (21:00→21:52)
[2022-04-18] VITALS: BP 111/66
[2022-04-18 04:00] VITALS: BP 110/63
[2022-04-18 05:50] LABS: BASOPHILS % 0.3 % (0.0-2.0); EOSINOPHILS % 0.8 % (0.0-5.0); HEMATOCRIT. 24.5 % (36.0-48.0); HEMOGLOBIN. 7.9 g/dL (12.0-16.0); LYMPHOCYTES % 17.6 % (20.0-50.0); MEAN CORPUSCULAR HEMOGLOBIN 31.1 pg (28.0-32.0); MEAN CORPUSCULAR VOLUME 96.9 fL (81.0-99.0); MEAN PLATELET VOLUME 8.9 fl (7.4-10.4); MONOCYTES % 8.5 % (2.0-8.0); NEUTROPHILS % 72.8 % (40.0-76.0); PLATELET 281 x1000/uL (130-400); RED BLOOD CELL COUNT 2.53 mill/uL (4.2-5.4); RED CELL DISTRIBUTION WIDTH 22.6 % (11.6-14.6)
[2022-04-18 06:09] LABS: PROTHROMBIN TIME 64.2 sec (9.6-11.0)
[2022-04-18 08:00] VITALS: BP 88/45
[2022-04-18] MEDS: PIPERACILLIN/TAZOBACTAM 3.375 G in DEXTROSE 5% WATER 50 ML IV SCH ×3 (09:00→21:37)
[2022-04-18] MEDS: ZINC SULFATE 220 MG ( 50 ) CAPSULE PO SCH (09:02)
[2022-04-18] MEDS: CALCIUM ACETATE 667MG CAPSULE PO SCH ×4 (09:03→18:09)
[2022-04-18] MEDS: ASCORBIC ACID 500 MG TABLET PO SCH ×2 (09:03→21:37)
[2022-04-18] MEDS: MIDODRINE HCL 5MG TABLET PO SCH ×3 (09:53→18:05)
[2022-04-18 12:00] VITALS: BP 106/54
[2022-04-18 16:00] VITALS: BP 100/49
[2022-04-18] MEDS: ACETAMINOPHEN 325MG TABLET PO PRN (18:04)
[2022-04-18 20:00] VITALS: BP 113/57
[2022-04-18] MEDS: TRAZODONE HCL 50MG TABLET PO SCH (21:37)
[2022-04-18] MEDS: FAMOTIDINE 20MG TABLET PO SCH (21:37)
[2022-04-19] VITALS (8 sets, daily range): BP systolic 85–129; BP diastolic 48–103
[2022-04-19 06:42] LABS: HEMATOCRIT. 27.7 % (36.0-48.0); HEMOGLOBIN. 8.7 g/dL (12.0-16.0); MEAN CORPUSCULAR HEMOGLOBIN 30.7 pg (28.0-32.0); MEAN PLATELET VOLUME 9.1 fl (7.4-10.4); PLATELET 343 x1000/uL (130-400); RED BLOOD CELL COUNT 2.83 mill/uL (4.2-5.4); RED CELL DISTRIBUTION WIDTH 22.4 % (11.6-14.6)
[2022-04-19 06:49] LABS: PROTHROMBIN TIME 54.6 sec (9.6-11.0)
[2022-04-19 07:50] LABS: INR 5.9
[2022-04-19] MEDS: PIPERACILLIN/TAZOBACTAM 3.375 G in DEXTROSE 5% WATER 50 ML IV SCH ×2 (09:00→22:04)
[2022-04-19] MEDS: ASCORBIC ACID 500 MG TABLET PO SCH ×2 (09:26→22:05)
[2022-04-19] MEDS: ZINC SULFATE 220 MG ( 50 ) CAPSULE PO SCH (09:26)
[2022-04-19] MEDS: MIDODRINE HCL 5MG TABLET PO SCH ×3 (09:27→17:58)
[2022-04-19] MEDS ORDERED: LIDOCAINE HCL 1% 30ML VIAL (10MG/ML) ONE (11:20)
[2022-04-19] MEDS: CALCIUM ACETATE 667MG CAPSULE PO SCH ×2 (12:43→17:58)
[2022-04-19 13:25] LABS: PLATELET ESTIMATE NORMAL
[2022-04-19] MEDS: TRAZODONE HCL 50MG TABLET PO SCH (22:05)
[2022-04-19] MEDS: FAMOTIDINE 20MG TABLET PO SCH (22:05)
[2022-04-20] VITALS (8 sets, daily range): BP systolic 78–135; BP diastolic 37–79
[2022-04-20] MEDS ORDERED: VANCOMYCIN 750MG PREMIX 150 ML IV NR (06:00)
[2022-04-20] MEDS: CALCIUM ACETATE 667MG CAPSULE PO SCH ×3 (09:10→16:50)
[2022-04-20] MEDS: ASCORBIC ACID 500 MG TABLET PO SCH ×2 (09:11→21:08)
[2022-04-20] MEDS: PIPERACILLIN/TAZOBACTAM 3.375 G in DEXTROSE 5% WATER 50 ML IV SCH (09:11)
[2022-04-20] MEDS: ZINC SULFATE 220 MG ( 50 ) CAPSULE PO SCH (09:11)
[2022-04-20] MEDS: MIDODRINE HCL 5MG TABLET PO SCH ×3 (09:16→16:50)
[2022-04-20] MEDS ORDERED: AMIODARONE HCL 150 MG in DEXT 5% WATER 100 ML IV NR (11:30)
[2022-04-20 17:36] LABS: MEAN CORPUSCULAR HEMOGLOBIN 30.1 pg (28.0-32.0); MEAN CORPUSCULAR VOLUME 94.5 fL (81.0-99.0); MEAN PLATELET VOLUME 8.6 fl (7.4-10.4); PLATELET 288 x1000/uL (130-400); RED CELL DISTRIBUTION WIDTH 22.4 % (11.6-14.6)
[2022-04-20 17:48] LABS: PROTHROMBIN TIME 47.9 sec (9.6-11.0)
[2022-04-20 17:51] LABS: HEMATOCRIT. 20.7 % (36.0-48.0); HEMOGLOBIN. 6.6 g/dL (12.0-16.0)
[2022-04-20 18:00] LABS: CHLORIDE 89 mEq/L (98-107)
[2022-04-20] MEDS ORDERED: POTASSIUM CHLORIDE 20MEQ TABLET SR PO NR (19:15)
[2022-04-20 20:16] LABS: PLATELET ESTIMATE NORMAL
[2022-04-20 20:26] LABS: INR 5.1
[2022-04-20] MEDS: FAMOTIDINE 20MG TABLET PO SCH (21:08)
[2022-04-20] MEDS: TRAZODONE HCL 50MG TABLET PO SCH (21:08)
[2022-04-21] VITALS (8 sets, daily range): BP systolic 90–111; BP diastolic 30–85
[2022-04-21] MEDS: CALCIUM ACETATE 667MG CAPSULE PO SCH ×3 (09:02→16:55)
[2022-04-21] MEDS: ASCORBIC ACID 500 MG TABLET PO SCH ×2 (09:02→21:27)
[2022-04-21] MEDS: ZINC SULFATE 220 MG ( 50 ) CAPSULE PO SCH (09:02)
[2022-04-21] MEDS: CEFEPIME 1,000 MG in DEXTROSE 5% WATER 50 ML IV SCH (09:02)
[2022-04-21] MEDS: MIDODRINE HCL 5MG TABLET PO SCH ×3 (09:02→16:46)
[2022-04-21 11:10] LABS: HEMATOCRIT 26.7 % (36.0-48.0); HEMOGLOBIN 8.6 g/dL (12.0-16.0)
[2022-04-21 11:16] LABS: PROTHROMBIN TIME 42.3 sec (9.6-11.0)
[2022-04-21 12:41] LABS: INR 4.4
[2022-04-21] MEDS: TRAZODONE HCL 50MG TABLET PO SCH (21:27)
[2022-04-21] MEDS: FAMOTIDINE 20MG TABLET PO SCH (21:27)
[2022-04-21] MEDS: RISPERIDONE 0.5MG TABLET PO SCH (21:27)
[2022-04-22] VITALS: BP 143/91
[2022-04-22 04:00] VITALS: BP 101/50
[2022-04-22 08:00] VITALS: BP 98/38
[2022-04-22] MEDS: RISPERIDONE 0.5MG TABLET PO SCH ×2 (09:45→20:46)
[2022-04-22] MEDS: MIDODRINE HCL 5MG TABLET PO SCH ×3 (09:45→18:02)
[2022-04-22] MEDS: ASCORBIC ACID 500 MG TABLET PO SCH ×2 (09:45→20:46)
[2022-04-22] MEDS: ZINC SULFATE 220 MG ( 50 ) CAPSULE PO SCH (09:45)
[2022-04-22] MEDS: CALCIUM ACETATE 667MG CAPSULE PO SCH ×3 (09:46→18:01)
[2022-04-22] MEDS: CEFEPIME 1,000 MG in DEXTROSE 5% WATER 50 ML IV SCH (09:46)
[2022-04-22 11:11] LABS: PROTHROMBIN TIME 54.5 sec (9.6-11.0)
[2022-04-22 11:48] LABS: INR 5.8
[2022-04-22 12:00] VITALS: BP 121/66
[2022-04-22 16:00] VITALS: BP 104/72
[2022-04-22 20:00] VITALS: BP 113/46
[2022-04-22] MEDS: FAMOTIDINE 20MG TABLET PO SCH (20:46)
[2022-04-22] MEDS: TRAZODONE HCL 50MG TABLET PO SCH (20:46)
[2022-04-23] VITALS: BP 95/41
[2022-04-23] MEDS: ACETAMINOPHEN 325MG TABLET PO PRN (00:18)
[2022-04-23 04:00] VITALS: BP 98/31
[2022-04-23 08:00] VITALS: BP 93/46
[2022-04-23] MEDS: MIDODRINE HCL 5MG TABLET PO SCH ×3 (09:29→17:34)
[2022-04-23] MEDS: RISPERIDONE 0.5MG TABLET PO SCH ×2 (09:29→21:28)
[2022-04-23] MEDS: CALCIUM ACETATE 667MG CAPSULE PO SCH ×3 (09:29→17:34)
[2022-04-23] MEDS: ASCORBIC ACID 500 MG TABLET PO SCH ×2 (09:29→21:28)
[2022-04-23] MEDS: ZINC SULFATE 220 MG ( 50 ) CAPSULE PO SCH (09:29)
[2022-04-23] MEDS: CEFEPIME 1,000 MG in DEXTROSE 5% WATER 50 ML IV SCH (09:30)
[2022-04-23 11:08] LABS: PROTHROMBIN TIME 46.5 sec (9.6-11.0)
[2022-04-23 12:00] VITALS: BP 89/54
[2022-04-23 12:04] LABS: INR 4.9
[2022-04-23] MEDS: GABAPENTIN 100MG CAPSULE PO SCH ×2 (13:36→21:28)
[2022-04-23 16:00] VITALS: BP 92/65
[2022-04-23 20:00] VITALS: BP 95/62
[2022-04-23] MEDS: FAMOTIDINE 20MG TABLET PO SCH (21:28)
[2022-04-23] MEDS: TRAZODONE HCL 50MG TABLET PO SCH (21:28)
[2022-04-24] VITALS (13 sets, daily range): BP systolic 69–98; BP diastolic 30–53
[2022-04-24] MEDS: MIDODRINE HCL 5MG TABLET PO SCH ×3 (04:11→16:10)
[2022-04-24] MEDS: GABAPENTIN 100MG CAPSULE PO SCH ×3 (06:14→21:58)
[2022-04-24 08:50] LABS: BASOPHILS % 0.4 % (0.0-2.0); EOSINOPHILS % 0.4 % (0.0-5.0); HEMATOCRIT. 25.5 % (36.0-48.0); HEMOGLOBIN. 8.4 g/dL (12.0-16.0); LYMPHOCYTES % 9.8 % (20.0-50.0); MEAN CORPUSCULAR HEMOGLOBIN 30.5 pg (28.0-32.0); MEAN CORPUSCULAR VOLUME 91.8 fL (81.0-99.0); MONOCYTES % 4.8 % (2.0-8.0); NEUTROPHILS % 84.6 % (40.0-76.0); PLATELET 200 x1000/uL (130-400); RED BLOOD CELL COUNT 2.77 mill/uL (4.2-5.4); RED CELL DISTRIBUTION WIDTH 22.4 % (11.6-14.6)
[2022-04-24 08:59] LABS: PROTHROMBIN TIME 46.7 sec (9.6-11.0)
[2022-04-24] MEDS: CALCIUM ACETATE 667MG CAPSULE PO SCH ×3 (09:01→17:43)
[2022-04-24] MEDS: ZINC SULFATE 220 MG ( 50 ) CAPSULE PO SCH (09:01)
[2022-04-24] MEDS: RISPERIDONE 0.5MG TABLET PO SCH (09:01)
[2022-04-24] MEDS: CEFEPIME 1,000 MG in DEXTROSE 5% WATER 50 ML IV SCH (09:01)
[2022-04-24] MEDS: ASCORBIC ACID 500 MG TABLET PO SCH ×2 (09:01→20:42)
[2022-04-24] MEDS: ERGOCALCIFEROL 50000UNITS CAPSULE PO SCH (09:01)
[2022-04-24 09:14] LABS: INR 4.9
[2022-04-24 10:58] LABS: PLATELET ESTIMATE NORMAL
[2022-04-24] MEDS ORDERED: POTASSIUM CHLORIDE 20MEQ/PACKET PO NR (11:15)
[2022-04-24 14:24] LABS: PHOSPHORUS 5.1 mg/dL (2.5-4.9)
[2022-04-24] MEDS: FAMOTIDINE 20MG TABLET PO SCH (20:42)
[2022-04-25] VITALS: BP 91/59
[2022-04-25 04:00] VITALS: BP 89/46
[2022-04-25] MEDS: GABAPENTIN 100MG CAPSULE PO SCH ×3 (05:00→21:01)
[2022-04-25 06:30] LABS: BASOPHILS % 0.3 % (0.0-2.0); EOSINOPHILS % 0.3 % (0.0-5.0); HEMATOCRIT. 25.9 % (36.0-48.0); HEMOGLOBIN. 8.5 g/dL (12.0-16.0); LYMPHOCYTES % 8.4 % (20.0-50.0); MEAN CORPUSCULAR HEMOGLOBIN 30.2 pg (28.0-32.0); MEAN CORPUSCULAR VOLUME 92.5 fL (81.0-99.0); MEAN PLATELET VOLUME 8.1 fl (7.4-10.4); MONOCYTES % 4.1 % (2.0-8.0); NEUTROPHILS % 86.9 % (40.0-76.0); PLATELET 161 x1000/uL (130-400); RED CELL DISTRIBUTION WIDTH 22.4 % (11.6-14.6)
[2022-04-25 06:34] LABS: PROTHROMBIN TIME 41.3 sec (9.6-11.0)
[2022-04-25 08:00] VITALS: BP 108/68
[2022-04-25 08:03] LABS: INR 4.3
[2022-04-25] MEDS: ZINC SULFATE 220 MG ( 50 ) CAPSULE PO SCH (08:56)
[2022-04-25] MEDS: CEFEPIME 1,000 MG in DEXTROSE 5% WATER 50 ML IV SCH (08:56)
[2022-04-25] MEDS: CALCIUM ACETATE 667MG CAPSULE PO SCH ×3 (08:56→17:32)
[2022-04-25] MEDS: ASCORBIC ACID 500 MG TABLET PO SCH ×2 (08:56→20:57)
[2022-04-25] MEDS: MIDODRINE HCL 5MG TABLET PO SCH ×3 (08:58→17:00)
[2022-04-25 12:00] VITALS: BP 138/77
[2022-04-25 16:00] VITALS: BP 120/65
[2022-04-25] MEDS ORDERED: WARFARIN SODIUM 1MG TABLET PO SCH (18:00)
[2022-04-25 20:00] VITALS: BP 108/48
[2022-04-25] MEDS: FAMOTIDINE 20MG TABLET PO SCH (20:57)
[2022-04-26] VITALS: BP 104/47
[2022-04-26 04:00] VITALS: BP 120/96
[2022-04-26] MEDS: GABAPENTIN 100MG CAPSULE PO SCH ×3 (06:30→21:09)
[2022-04-26 07:14] LABS: BASOPHILS % 0.3 % (0.0-2.0); EOSINOPHILS % 0.3 % (0.0-5.0); HEMATOCRIT. 26.6 % (36.0-48.0); HEMOGLOBIN. 8.5 g/dL (12.0-16.0); LYMPHOCYTES % 9.2 % (20.0-50.0); MEAN CORPUSCULAR HEMOGLOBIN 29.8 pg (28.0-32.0); MEAN CORPUSCULAR VOLUME 93.7 fL (81.0-99.0); MEAN PLATELET VOLUME 8.5 fl (7.4-10.4); MONOCYTES % 4.4 % (2.0-8.0); NEUTROPHILS % 85.8 % (40.0-76.0); PLATELET 133 x1000/uL (130-400); RED BLOOD CELL COUNT 2.84 mill/uL (4.2-5.4); RED CELL DISTRIBUTION WIDTH 22.6 % (11.6-14.6)
[2022-04-26 08:00] VITALS: BP 101/38
[2022-04-26] MEDS: MIDODRINE HCL 5MG TABLET PO SCH ×3 (09:15→18:23)
[2022-04-26] MEDS: ASCORBIC ACID 500 MG TABLET PO SCH ×2 (09:15→21:09)
[2022-04-26] MEDS: CALCIUM ACETATE 667MG CAPSULE PO SCH ×3 (09:15→18:23)
[2022-04-26] MEDS: ZINC SULFATE 220 MG ( 50 ) CAPSULE PO SCH (09:15)
[2022-04-26] MEDS: CEFEPIME 1,000 MG in DEXTROSE 5% WATER 50 ML IV SCH (09:16)
[2022-04-26 12:00] VITALS: BP 108/69
[2022-04-26 13:07] LABS: ANTI-NUCLEAR ANTIBODIES DIRECT Negative (Negative); ATYPICAL P-ANCA <1:20 titer (Neg:<1:20); CYTOPLASMIC C-ANCA <1:20 titer (Neg:<1:20); PERINUCLEAR P-ANCA <1:20 titer (Neg:<1:20)
[2022-04-26 16:00] VITALS: BP 106/52
[2022-04-26] MEDS ORDERED: VANCOMYCIN 2,000 MG in DEXT 5% WATER 500 ML IV NR (17:30)
[2022-04-26 18:29] LABS: INR 2.9; PROTHROMBIN TIME 28.4 sec (9.6-11.0)
[2022-04-26 19:06] LABS: ANTI-MYELOPEROXIDASE AB < 0.2 units (0.0-0.9); ANTI-PROTEINASE 3 ABS < 0.2 units (0.0-0.9)
[2022-04-26 20:00] VITALS: BP 105/50
[2022-04-26] MEDS: FAMOTIDINE 20MG TABLET PO SCH (21:09)
[2022-04-26] MEDS: ACETAMINOPHEN 325MG TABLET PO PRN (21:10)
[2022-04-27] VITALS: BP 120/62
[2022-04-27 04:00] VITALS: BP 102/62
[2022-04-27] MEDS: GABAPENTIN 100MG CAPSULE PO SCH ×3 (05:47→21:46)
[2022-04-27 08:00] VITALS: BP 121/100
[2022-04-27] MEDS: MIDODRINE HCL 5MG TABLET PO SCH ×3 (09:00→17:55)
[2022-04-27] MEDS: ZINC SULFATE 220 MG ( 50 ) CAPSULE PO SCH (09:53)
[2022-04-27] MEDS: ASCORBIC ACID 500 MG TABLET PO SCH ×2 (09:53→21:46)
[2022-04-27] MEDS: CALCIUM ACETATE 667MG CAPSULE PO SCH ×3 (09:53→17:56)
[2022-04-27] MEDS: MEROPENEM 500 MG in SODIUM CHLORIDE 0.9% 50 ML IV SCH (09:54)
[2022-04-27 11:47] LABS: BASOPHILS % 0.3 % (0.0-2.0); EOSINOPHILS % 0.3 % (0.0-5.0); HEMATOCRIT. 25.5 % (36.0-48.0); HEMOGLOBIN. 8.2 g/dL (12.0-16.0); LYMPHOCYTES % 10.6 % (20.0-50.0); MEAN CORPUSCULAR HEMOGLOBIN 29.9 pg (28.0-32.0); MEAN CORPUSCULAR VOLUME 93.1 fL (81.0-99.0); MEAN PLATELET VOLUME 8.6 fl (7.4-10.4); MONOCYTES % 6.3 % (2.0-8.0); NEUTROPHILS % 82.5 % (40.0-76.0); PLATELET 134 x1000/uL (130-400); RED BLOOD CELL COUNT 2.73 mill/uL (4.2-5.4); RED CELL DISTRIBUTION WIDTH 22.6 % (11.6-14.6)
[2022-04-27 12:00] VITALS: BP 93/34
[2022-04-27 12:00] LABS: INR 2.5; PROTHROMBIN TIME 24.8 sec (9.6-11.0)
[2022-04-27 12:19] LABS: PHOSPHORUS 4.8 mg/dL (2.5-4.9)
[2022-04-27 16:07] VITALS: BP 104/38
[2022-04-27] MEDS ORDERED: WARFARIN SODIUM 1MG TABLET PO SCH (18:00)
[2022-04-27 20:00] VITALS: BP 141/95
[2022-04-27] MEDS: FAMOTIDINE 20MG TABLET PO SCH (21:46)
[2022-04-27] MEDS: TRAZODONE HCL 50MG TABLET PO SCH (21:54)
[2022-04-27] MEDS: RISPERIDONE 0.5MG TABLET PO SCH (21:55)
[2022-04-28] VITALS: BP 99/62
[2022-04-28 04:00] VITALS: BP 120/92
[2022-04-28] MEDS: GABAPENTIN 100MG CAPSULE PO SCH ×3 (06:34→21:38)
[2022-04-28 07:14] LABS: INR 2.2; PROTHROMBIN TIME 21.9 sec (9.6-11.0)
[2022-04-28 07:30] LABS: BASOPHILS % 0.2 % (0.0-2.0); EOSINOPHILS % 0.2 % (0.0-5.0); HEMATOCRIT. 24.7 % (36.0-48.0); HEMOGLOBIN. 7.9 g/dL (12.0-16.0); LYMPHOCYTES % 7.8 % (20.0-50.0); MEAN CORPUSCULAR HEMOGLOBIN 29.5 pg (28.0-32.0); MEAN CORPUSCULAR VOLUME 92.8 fL (81.0-99.0); MEAN PLATELET VOLUME 9.8 fl (7.4-10.4); MONOCYTES % 5.8 % (2.0-8.0); PLATELET 158 x1000/uL (130-400); RED BLOOD CELL COUNT 2.66 mill/uL (4.2-5.4); RED CELL DISTRIBUTION WIDTH 22.2 % (11.6-14.6)
[2022-04-28 08:00] VITALS: BP 127/99
[2022-04-28] MEDS: MEROPENEM 500 MG in SODIUM CHLORIDE 0.9% 50 ML IV SCH (10:04)
[2022-04-28] MEDS: CALCIUM ACETATE 667MG CAPSULE PO SCH ×3 (10:05→17:09)
[2022-04-28] MEDS: RISPERIDONE 0.5MG TABLET PO SCH ×2 (10:05→21:00)
[2022-04-28] MEDS: ZINC SULFATE 220 MG ( 50 ) CAPSULE PO SCH (10:05)
[2022-04-28] MEDS: MIDODRINE HCL 5MG TABLET PO SCH ×3 (10:05→17:10)
[2022-04-28] MEDS: ASCORBIC ACID 500 MG TABLET PO SCH ×3 (10:05→21:37)
[2022-04-28 11:49] LABS: PLATELET ESTIMATE NORMAL
[2022-04-28 11:51] VITALS: BP 99/39
[2022-04-28 16:03] VITALS: BP 96/40
[2022-04-28] MEDS ORDERED: WARFARIN SODIUM 1MG TABLET PO NR (18:00)
[2022-04-28 20:00] VITALS: BP 80/41
[2022-04-28] MEDS: TRAZODONE HCL 50MG TABLET PO SCH (21:00)
[2022-04-28] MEDS: FAMOTIDINE 20MG TABLET PO SCH (21:00)
[2022-04-29] VITALS: BP 124/85
[2022-04-29 04:00] VITALS: BP 121/80
[2022-04-29] MEDS: GABAPENTIN 100MG CAPSULE PO SCH ×3 (05:15→21:40)
[2022-04-29 07:16] LABS: INR 1.7; PROTHROMBIN TIME 17.3 sec (9.6-11.0)
[2022-04-29 08:00] VITALS: BP 96/45
[2022-04-29] MEDS: CALCIUM ACETATE 667MG CAPSULE PO SCH ×3 (09:40→17:35)
[2022-04-29] MEDS: RISPERIDONE 0.5MG TABLET PO SCH (09:40)
[2022-04-29] MEDS: ASCORBIC ACID 500 MG TABLET PO SCH ×2 (09:41→21:40)
[2022-04-29] MEDS: ZINC SULFATE 220 MG ( 50 ) CAPSULE PO SCH (09:41)
[2022-04-29] MEDS: MIDODRINE HCL 5MG TABLET PO SCH ×3 (09:45→17:28)
[2022-04-29] MEDS: MEROPENEM 500 MG in SODIUM CHLORIDE 0.9% 50 ML IV SCH (09:45)
[2022-04-29 12:00] VITALS: BP 95/48
[2022-04-29 16:00] VITALS: BP 113/47
[2022-04-29] MEDS: WARFARIN SODIUM 1MG TABLET PO NR (18:00)
[2022-04-29 20:00] VITALS: BP 144/88
[2022-04-29] MEDS: TRAZODONE HCL 50MG TABLET PO SCH (21:40)
[2022-04-29] MEDS: RISPERIDONE 0.25MG TABLET PO SCH (21:41)
[2022-04-29] MEDS: FAMOTIDINE 20MG TABLET PO SCH (21:41)
[2022-04-30] VITALS: BP 90/46
[2022-04-30 04:00] VITALS: BP 136/108
[2022-04-30] MEDS: GABAPENTIN 100MG CAPSULE PO SCH ×3 (05:34→20:58)
[2022-04-30 06:23] LABS: INR 1.7; PROTHROMBIN TIME 17.6 sec (9.6-11.0)
[2022-04-30 06:34] LABS: BASOPHILS % 0.2 % (0.0-2.0); EOSINOPHILS % 0.2 % (0.0-5.0); HEMATOCRIT. 23.6 % (36.0-48.0); HEMOGLOBIN. 7.5 g/dL (12.0-16.0); LYMPHOCYTES % 8.5 % (20.0-50.0); MEAN CORPUSCULAR HEMOGLOBIN 29.1 pg (28.0-32.0); MEAN CORPUSCULAR VOLUME 91.5 fL (81.0-99.0); MEAN PLATELET VOLUME 8.6 fl (7.4-10.4); MONOCYTES % 5.8 % (2.0-8.0); NEUTROPHILS % 85.3 % (40.0-76.0); PLATELET 160 x1000/uL (130-400); RED BLOOD CELL COUNT 2.58 mill/uL (4.2-5.4); RED CELL DISTRIBUTION WIDTH 22.1 % (11.6-14.6)
[2022-04-30 08:00] VITALS: BP 110/85
[2022-04-30] MEDS ORDERED: POTASSIUM CHLORIDE 20MEQ/PACKET PO NR (08:30)
[2022-04-30] MEDS: RISPERIDONE 0.25MG TABLET PO SCH ×2 (08:38→20:58)
[2022-04-30] MEDS: ASCORBIC ACID 500 MG TABLET PO SCH ×2 (08:39→20:57)
[2022-04-30] MEDS: MIDODRINE HCL 5MG TABLET PO SCH ×3 (08:39→17:46)
[2022-04-30] MEDS: CALCIUM ACETATE 667MG CAPSULE PO SCH ×3 (08:39→17:46)
[2022-04-30] MEDS: ZINC SULFATE 220 MG ( 50 ) CAPSULE PO SCH (08:40)
[2022-04-30] MEDS: MEROPENEM 500 MG in SODIUM CHLORIDE 0.9% 50 ML IV SCH (08:40)
[2022-04-30 12:00] VITALS: BP 82/43
[2022-04-30] MEDS: ACETAMINOPHEN 325MG TABLET PO PRN (15:13)
[2022-04-30 16:00] VITALS: BP 96/43
[2022-04-30] MEDS ORDERED: WARFARIN SODIUM 1MG TABLET PO NR (18:00)
[2022-04-30] MEDS: WARFARIN SODIUM 1MG TABLET PO NR (18:09)
[2022-04-30 20:00] VITALS: BP 103/81
[2022-04-30] MEDS: TRAZODONE HCL 50MG TABLET PO SCH (20:57)
[2022-04-30] MEDS: FAMOTIDINE 20MG TABLET PO SCH (20:58)
[2022-05-01] VITALS (9 sets, daily range): BP systolic 53–136; BP diastolic 29–61
[2022-05-01] MEDS: GABAPENTIN 100MG CAPSULE PO SCH ×4 (06:31→22:00)
[2022-05-01] MEDS: MIDODRINE HCL 5MG TABLET PO SCH ×3 (07:48→17:24)
[2022-05-01] MEDS: RISPERIDONE 0.25MG TABLET PO SCH ×2 (07:48→21:00)
[2022-05-01] MEDS: CALCIUM ACETATE 667MG CAPSULE PO SCH ×3 (07:48→17:24)
[2022-05-01] MEDS: ASCORBIC ACID 500 MG TABLET PO SCH ×3 (07:48→21:00)
[2022-05-01] MEDS: ZINC SULFATE 220 MG ( 50 ) CAPSULE PO SCH (07:49)
[2022-05-01] MEDS: MEROPENEM 500 MG in SODIUM CHLORIDE 0.9% 50 ML IV SCH (07:54)
[2022-05-01] MEDS: ERGOCALCIFEROL 50000UNITS CAPSULE PO SCH (07:54)
[2022-05-01 08:06] LABS: BASOPHILS % 0.4 % (0.0-2.0); EOSINOPHILS % 0.4 % (0.0-5.0); HEMATOCRIT. 22.2 % (36.0-48.0); HEMOGLOBIN. 7.3 g/dL (12.0-16.0); INR 1.6; MEAN CORPUSCULAR HEMOGLOBIN 30.1 pg (28.0-32.0); MEAN PLATELET VOLUME 8.2 fl (7.4-10.4); MONOCYTES % 6.1 % (2.0-8.0); NEUTROPHILS % 85.1 % (40.0-76.0); PLATELET 128 x1000/uL (130-400); PROTHROMBIN TIME 16.8 sec (9.6-11.0); RED BLOOD CELL COUNT 2.42 mill/uL (4.2-5.4); RED CELL DISTRIBUTION WIDTH 21.9 % (11.6-14.6)
[2022-05-01] MEDS ORDERED: POTASSIUM CHLORIDE 20MEQ TABLET SR PO NR (10:15)
[2022-05-01] MEDS: FLUDROCORTISONE ACETATE 0.1MG TABLET PO SCH (11:57)
[2022-05-01] MEDS ORDERED: WARFARIN SODIUM 1MG TABLET PO NR (18:00)
[2022-05-01] MEDS: FAMOTIDINE 20MG TABLET PO SCH ×2 (20:45→21:00)
[2022-05-01] MEDS: EPOETIN ALFA-EPBX 4,000 UNIT/ML VIAL SUBCUT SCH ×2 (20:45→21:00)
[2022-05-01] MEDS: TRAZODONE HCL 50MG TABLET PO SCH (21:00)
[2022-05-02] VITALS: BP 126/46
[2022-05-02 04:00] VITALS: BP 134/44
[2022-05-02] MEDS: GABAPENTIN 100MG CAPSULE PO SCH ×3 (05:59→22:00)
[2022-05-02 08:00] VITALS: BP 105/45
[2022-05-02] MEDS: CALCIUM ACETATE 667MG CAPSULE PO SCH ×3 (08:54→16:47)
[2022-05-02] MEDS: FOLIC ACID/VITAMIN B COMP W-C TABLET PO SCH (08:54)
[2022-05-02] MEDS: ZINC SULFATE 220 MG ( 50 ) CAPSULE PO SCH (08:54)
[2022-05-02] MEDS: ASCORBIC ACID 500 MG TABLET PO SCH ×2 (08:54→21:13)
[2022-05-02] MEDS: RISPERIDONE 0.25MG TABLET PO SCH ×2 (08:54→21:13)
[2022-05-02] MEDS: FLUDROCORTISONE ACETATE 0.1MG TABLET PO SCH ×2 (08:54→16:47)
[2022-05-02] MEDS: MIDODRINE HCL 5MG TABLET PO SCH ×3 (08:55→16:47)
[2022-05-02 11:58] LABS: BASOPHILS % 0.2 % (0.0-2.0); EOSINOPHILS % 0.2 % (0.0-5.0); HEMATOCRIT. 22.2 % (36.0-48.0); HEMOGLOBIN. 7.2 g/dL (12.0-16.0); LYMPHOCYTES % 7.3 % (20.0-50.0); MEAN CORPUSCULAR VOLUME 92.6 fL (81.0-99.0); MONOCYTES % 4.6 % (2.0-8.0); NEUTROPHILS % 87.7 % (40.0-76.0); PLATELET 115 x1000/uL (130-400); RED CELL DISTRIBUTION WIDTH 22.4 % (11.6-14.6)
[2022-05-02 12:00] VITALS: BP 88/32
[2022-05-02 12:07] LABS: INR 1.6
[2022-05-02] MEDS: SODIUM CHLORIDE 0.9% 1,000 ML IV SCH (14:00)
[2022-05-02 16:00] VITALS: BP 63/32
[2022-05-02] MEDS ORDERED: WARFARIN SODIUM 2MG TABLET PO SCH (18:00)
[2022-05-02 20:00] VITALS: BP 92/47
[2022-05-02] MEDS: FAMOTIDINE 20MG TABLET PO SCH (21:13)
[2022-05-02] MEDS: TRAZODONE HCL 50MG TABLET PO SCH (21:14)
[2022-05-03] VITALS: BP 90/49
[2022-05-03 04:00] VITALS: BP 96/58
[2022-05-03] MEDS: SODIUM CHLORIDE 0.9% 1,000 ML IV SCH (04:14)
[2022-05-03] MEDS: GABAPENTIN 100MG CAPSULE PO SCH (06:09)
[2022-05-03] MEDS: CALCIUM ACETATE 667MG CAPSULE PO SCH (07:50)
[2022-05-03 08:00] VITALS: BP 105/57
[2022-05-03 08:02] LABS: INR 1.7; PROTHROMBIN TIME 17.2 sec (9.6-11.0)
[2022-05-03 08:06] LABS: HEMOGLOBIN. 7.6 g/dL (12.0-16.0); MEAN CORPUSCULAR HEMOGLOBIN 29.6 pg (28.0-32.0); MEAN CORPUSCULAR VOLUME 93.7 fL (81.0-99.0); MEAN PLATELET VOLUME 9.1 fl (7.4-10.4); PLATELET 127 x1000/uL (130-400); RED BLOOD CELL COUNT 2.56 mill/uL (4.2-5.4); RED CELL DISTRIBUTION WIDTH 22.4 % (11.6-14.6)
[2022-05-03] MEDS: RISPERIDONE 0.25MG TABLET PO SCH (09:00)
[2022-05-03] MEDS: MIDODRINE HCL 5MG TABLET PO SCH (09:00)
[2022-05-03] MEDS: FLUDROCORTISONE ACETATE 0.1MG TABLET PO SCH (09:00)
[2022-05-03] MEDS: ASCORBIC ACID 500 MG TABLET PO SCH (09:00)
[2022-05-03] MEDS: ZINC SULFATE 220 MG ( 50 ) CAPSULE PO SCH (09:00)
[2022-05-03] MEDS: FOLIC ACID/VITAMIN B COMP W-C TABLET PO SCH (09:00)
[2022-05-03 10:37] LABS: NUCLEATED RED BLOOD CELLS 3 /100 WBC; PLATELET ESTIMATE SLIGHTLY DECREASED
[2022-05-03 12:00] VITALS: BP 103/55
[2022-05-03] MEDS ORDERED: POTASSIUM CHLORIDE 20MEQ TABLET SR PO NR (12:30)
[2022-05-03] MEDS ORDERED: WARFARIN SODIUM 2.5MG TABLET PO SCH (18:00)
== END 2022-05-03 13:55 | disposition left against medical advice (07) | DRG 871 ==
LOC: 6WST 15:32
PROVIDERS: ADMIT Internal Medicine; ATTEND Internal Medicine
PROC: 3E1M39Z Irrigation of Peritoneal Cavity using Dialysate, Percutaneous Approach (ICD-10-PCS; 2022-04-14)
PROC: 3E1M39Z Irrigation of Peritoneal Cavity using Dialysate, Percutaneous Approach (ICD-10-PCS; 2022-04-15)
PROC: 3E1M39Z Irrigation of Peritoneal Cavity using Dialysate, Percutaneous Approach (ICD-10-PCS; 2022-04-16)
PROC: 3E1M39Z Irrigation of Peritoneal Cavity using Dialysate, Percutaneous Approach (ICD-10-PCS; 2022-04-17)
PROC: 3E1M39Z Irrigation of Peritoneal Cavity using Dialysate, Percutaneous Approach (ICD-10-PCS; 2022-04-18)
PROC: 02HV33Z Insertion of Infusion Device into Superior Vena Cava, Percutaneous Approach (ICD-10-PCS; principal; 2022-04-19)
PROC: B5181ZA Fluoroscopy of Superior Vena Cava using Low Osmolar Contrast, Guidance (ICD-10-PCS; 2022-04-19)
PROC: B548ZZA Ultrasonography of Superior Vena Cava, Guidance (ICD-10-PCS; 2022-04-19)
PROC: 3E1M39Z Irrigation of Peritoneal Cavity using Dialysate, Percutaneous Approach (ICD-10-PCS; 2022-04-19)
PROC: 30233N1 Transfusion of Nonautologous Red Blood Cells into Peripheral Vein, Percutaneous Approach (ICD-10-PCS; 2022-04-20)
PROC: 3E1M39Z Irrigation of Peritoneal Cavity using Dialysate, Percutaneous Approach (ICD-10-PCS; 2022-04-21)
PROC: 3E1M39Z Irrigation of Peritoneal Cavity using Dialysate, Percutaneous Approach (ICD-10-PCS; 2022-04-22)
PROC: 3E1M39Z Irrigation of Peritoneal Cavity using Dialysate, Percutaneous Approach (ICD-10-PCS; 2022-04-23)
PROC: 3E1M39Z Irrigation of Peritoneal Cavity using Dialysate, Percutaneous Approach (ICD-10-PCS; 2022-04-24)
PROC: 3E1M39Z Irrigation of Peritoneal Cavity using Dialysate, Percutaneous Approach (ICD-10-PCS; 2022-04-25)
PROC: 3E1M39Z Irrigation of Peritoneal Cavity using Dialysate, Percutaneous Approach (ICD-10-PCS; 2022-04-26)
PROC: 3E1M39Z Irrigation of Peritoneal Cavity using Dialysate, Percutaneous Approach (ICD-10-PCS; 2022-04-27)
PROC: 3E1M39Z Irrigation of Peritoneal Cavity using Dialysate, Percutaneous Approach (ICD-10-PCS; 2022-04-28)
DX: A41.9 Sepsis, unspecified organism (principal); G93.41 Metabolic encephalopathy; L89.153 Pressure ulcer of sacral region, stage 3; N18.6 End stage renal disease; K65.9 Peritonitis, unspecified; R65.21 Severe sepsis with septic shock; I60.9 Nontraumatic subarachnoid hemorrhage, unspecified; I69.351 Hemiplegia and hemiparesis following cerebral infarction affecting right dominant side; E46 Unspecified protein-calorie malnutrition; I13.2 Hypertensive heart and chronic kidney disease with heart failure and with stage 5 chronic kidney disease, or end stage renal disease; E72.20 Disorder of urea cycle metabolism, unspecified; E87.1 Hypo-osmolality and hyponatremia; D68.9 Coagulation defect, unspecified; E87.20 Acidosis, unspecified; I50.32 Chronic diastolic (congestive) heart failure; R47.01 Aphasia; Z20.822 Contact with and (suspected) exposure to COVID-19; I25.10 Atherosclerotic heart disease of native coronary artery without angina pectoris; D63.8 Anemia in other chronic diseases classified elsewhere; I95.1 Orthostatic hypotension; D69.6 Thrombocytopenia, unspecified; I73.9 Peripheral vascular disease, unspecified; G89.0 Central pain syndrome; R42 Dizziness and giddiness; R77.8 Other specified abnormalities of plasma proteins; R74.01 Elevation of levels of liver transaminase levels; R13.10 Dysphagia, unspecified; I48.91 Unspecified atrial fibrillation; R53.81 Other malaise; Z53.29 Procedure and treatment not carried out because of patient's decision for other reasons; Z99.2 Dependence on renal dialysis; Z95.3 Presence of xenogenic heart valve; Z75.1 Person awaiting admission to adequate facility elsewhere; Z91.15 Patient's noncompliance with renal dialysis; Z79.01 Long term (current) use of anticoagulants; Z68.30 Body mass index [BMI] 30.0-30.9, adult; Z79.899 Other long term (current) drug therapy; Z82.49 Family history of ischemic heart disease and other diseases of the circulatory system
CPT/HCPCS: 36415; 36573; 71045; 74176; 80048; 80053; 80076; 80202; 82140; 82550; 82962; 83520; 83605; 83615; 83735; 84100; 84134; 84145; 84484; 85014; 85018; 85025; 85379; 85651; 86038; 86256; 86850; 86900; 86920; 87426; 87899; 92610; 93005; 93306; 93923; 97110; 97162; 97166; 97530; C1725; C1893; J0282; J0692; J0885; J2185; J2543; J3370; J3490; J7030; J7060; P9016; P9047